=== PATIENT | male | born 1955 | race Caucasian/White ===

== ENCOUNTER 2017-12-16 13:02 | Inpatient (IN) ==
--- NOTE | 2017-12-16 14:34 | Family Practice History&Phys ---
History of Present Illness Chief complaint: shortness of breath HPI: He reports that he has been having more shortness of breath the day than yesterday. Two days ago in the evening time he was having chest pains and went to [place] emergency room. It taken to [facility] and his chest pains have gone away and not returned. At the emergency room acute ischemia was ruled out. He had a chest x-ray and was not found to have pneumonia. He was diagnosed with COPD exacerbation. He was seen in the clinic yesterday and started on prednisone 50 mg daily for three days. Also started on doxycycline 100 mg twice a day. Uses oxygen at home. He normally is on 2 L but currently is taking 3 L by nasal cannula. He has been coughing. His cough is worse. He feels like He cannot get any air in. He denies fevers chills or nausea or vomiting. He denies chest pain. He is sleeping on 2 to 3 pillows. PFSH See problem list Surgical History: cabg - Social History Smoking status: Current every day smoker Medications Home Medications Medication Instructions Recorded Confirmed Type Anoro Ellipta 62.5-25 Mcg INH IH QAM 12/16/17 History Apidra Solostar 6 units SQ TID 12/16/17 History Azithromycin 250 mg PO QDRHS 12/16/17 History Basaglar Kwikpen U-100 16 units SQ DAILY 12/16/17 History Carvedilol 3.125 mg PO BID 12/16/17 History Combivent Respimat Inhaler 20 - 100 mcg IH QID 12/16/17 History Doxycycline 100 mg PO BID 12/16/17 History Finasteride 5 mg PO DAILY 12/16/17 History Flovent Hfa 220 mcg 1 puff IH BID 12/16/17 History Lasix 20 mg PO DAILY 12/16/17 History Lisinopril 20 mg PO DAILY 12/16/17 History Methocarbamol 750 mg PO BID 12/16/17 History Nitrostat 0.4 mg PO PRN 12/16/17 History Pantoprazole Tab 40 mg PO DAILY 12/16/17 History Plavix 75 mg PO DAILY 12/16/17 History Potassium Chloride 20 mcg PO DAILY 12/16/17 History Prednisone 50 mg PO DAILY 12/16/17 History Simvastatin 40 mg PO DAILY 12/16/17 History Xarelto 20 mg PO DAILY 12/16/17 History Allergies Allergy/AdvReac Type Severity Reaction Status Date / Time cabbage Allergy Unknown Verified 12/16/17 13:08 levofloxacin [From Levaquin] Allergy Unknown Verified 12/16/17 13:08 strawberry Allergy Unknown Verified 12/16/17 13:08 varenicline [From Chantix] Allergy Unknown Verified 12/16/17 13:08 Exam Vital signs: Blood pressure 121/80 heart rate 96, respiratory rate 20, temperature 96.4, oxygen saturation on 3 L by nasal cannula is 96% - Constitutional no acute distress - Routine HEENT Exam Head: Present: normocephalic, atraumatic Eye: Present: PERRL ENT: Present: external ear normal Throat: normal inspection - Routine Neck Exam Present: supple - Routine Respiratory Exam Comments: Lung sounds are very diminished in the bases bilaterally. I cannot hear air moving in the bases. In the upper lobes he has some expiratory wheezes. He seems to be of breath at rest. He has a moist cough. - Routine Cardiovascular Exam Present: RRR - Routine Abdominal Exam Present: soft, non distended, non tender Results - Labs All other labs normal. Assessment and Plan - Assessment and Plan (1) Chronic obstructive pulmonary disease with acute exacerbation Current visit: Yes Status: Acute I am ordering IV Solu-Medrol, oxygen to keep that's greater than 91%, IV fluids. Will also do nebulized medication. Observe overnight. Possible hospital admission. (2) Acute bronchitis due to other specified organisms Current visit: Yes Status: Acute Rocephin 1 g IV daily (3) Type 2 diabetes mellitus Current visit: No Status: Acute Check BGM's sent continue insulin (4) Coronary artery disease involving autologous artery coronary bypass graft Current visit: No Status: Acute Continue PRN Nitro and monitor symptoms (5) Hypertensive heart disease Current visit: No Status: Acute Continue oral medication and monitor vital signs (6) Hypercholesterolemia Current visit: No Status: Acute Continue simvastatin (7) Tobacco dependence due to cigarettes Current visit: No Status: Acute I discussed using an nicotine patch that patient refuses
[2017-12-16 14:46] VITALS: BMI 36.9
[2017-12-16] MEDS: ALBUTEROL/IPRATROPIUM 2.5mg-0.5mg/3ml NEB AEROSOL SCH ×3 (15:00→21:08)
[2017-12-16] MEDS ORDERED: ACETAMINOPHEN 500 MG TABLET PO PRN (15:03)
--- OUTSIDE RECORDS SUMMARY | 2017-12-16 15:04 | External Medical Summary ---
:1955 Author Organization eClinicalWorks Care Team Providers Name Role Phone Danielle Coronel Provider Role Unavailable Allergies, Adverse Reactions, Alerts Substance Reaction Event Type Levaquin Info Not Available Drug Allergy Problems Problem Type Condition ICD-9 Code Onset Dates Condition Status Problem COPD (chronic obstructive 496 Active pulmonary disease) Problem Hearing loss 389.9 Active Problem Heart disease 429.9 Active Problem Diabetes mellitus without 250.00 Active mention of complication, type II or unspecified type, not stated as uncontrolled Problem Coronary atherosclerosis of 414.00 Active unspecified type of vessel, [place] or graft Problem Atrial fibrillation and flutter 427.31 Active Problem Obesity 278.00 Active Problem Unspecified essential 401.9 Active hypertension Problem GERD (gastroesophageal reflux 530.81 Active disease) Problem Other and unspecified 272.4 Active hyperlipidemia Assessment Other and unspecified 272.4 Active hyperlipidemia Assessment Unspecified essential 401.9 Active hypertension Assessment Prostate cancer screening V76.44 Active Assessment Coronary atherosclerosis of 414.00 Active unspecified type of vessel, [place] or graft Assessment COPD (chronic obstructive 496 Active pulmonary disease) Assessment Diabetes mellitus without 250.00 Active mention of complication, type II or unspecified type, not stated as uncontrolled Medications Medication Code Code Instructions Start End Status Dosage System Date Date Ipratropium NDC 0 Dec 05, inhale 2 puffs [place] mcg/actuation 2013 (34 mcg) by inhalation route 4 times per day for 15 days Pradaxa ND 87770110767 150 MG Oral not defined NovoLog Flexpen ND 87566985483 100 INJECT 5 UNITS SUBCUTANEOUSLY THREE TIMES A DAY WITH MEALS Simvastatin ND 48173123167 40 TAKE ONE TABLET BY MOUTH EVERY EVENING Home Oxygen NDC 0 supply PNC Oct 12, 2 liters nightly and 2011 prn during the day Xopenex HFA ND 21511589483 45 INHALE 2 PUFFS BY MOUTH EVERY 4 TO 6 HOURS NEEDED Robaxin-750 ND 45898740756 750 TAKE ONE TABLET BY MOUTH TWICE A DAY Avodart ND 84286098039 0.5 TAKE ONE CAPSULE BY MOUTH DAILY Klor-Con M20 ND 53661020656 20 TAKE ONE TABLET BY MOUTH EVERY DAY WITH FOOD . TAKE WITH FUROSEMIDE Furosemide [facility] 99424631064 40 TAKE ONE TABLET BY MOUTH EVERY DAY Iprat-albut ND 0 0.5 mg-02 February INHALE ONE VIAL 0.5-3(2.5) mg/3 mg(2.5 07, IN NEBULIZER 4 ml 2014 TIMES A DAY Methocarbamol [facility] 75223684349 750 MG Oral not defined Levemir [facility] [address]-16 100 unit/mL Oct 14 units by 2012 Subcutaneous route 1 time per day Captopril [facility] [address]-57 25 MG Orally May 02 tablet twice a day 2012 Aspirin ND 0 81 mg May 02 PER DAY 2012 Carvedilol [facility] 97007162028 3.125 MG Oral not defined Procedures Procedure Coding System Code Date Lipid Panel - [facility] CPT-4 96849 May 08, 2015 Comprehen Metabolic Panel.[facility] CPT-4 46861 May 08, 2015 GLYCOSYLATED HEMOGLOBIN TEST CPT-4 17579 May 08, 2015 OFFICE VISIT EST PATIENT LEVEL 3 CPT-4 96696 May 08, 2015 PROS CANCR SCR; PROS ANTIG TST TOT CPT-4 G0103 May 08, 2015 ROUTINE VENIPUNCTURE CPT-4 48057 May 08, 2015 Vital Signs Date/Time: May 08, 2015 BMI 39.06 Index Weight 288 lbs Height 72 in Blood Pressure Diastolic 82 mm Hg Blood Pressure Systolic 118 mm Hg Cardiac Monitoring Heart Rate 86 /min Temperature 98.6 F Oximetry 87 - rest % Respiratory Rate 20 /min Results Name Result Date Reference Range Unit Abnormality Flag Venipuncture Summary Purpose eClinicalWorks Submission
--- OUTSIDE RECORDS SUMMARY | 2017-12-16 15:04 | External Medical Summary | Referral Summary ---
:1955 Author Organization [facility] Address [address] [place] [address] Care Team Providers Name Role Phone Danielle Coronel Primary Care Physician Encounter [facility] Date(s): 06/24/16 - 06/24/16 [facility] [address] [place] [address]- [place] Discharge Diagnosis: Shortness of breath Discharge Disposition: 01-Home or Self Care Attending Physician: Drake Newton MD Admitting Physician: Drake Newton MD Referring Physician: Drake Newton MD Vital Signs No data available for this section Problem List Condition Effective Dates Status Health Status Informant Knowledge deficit(Confirmed)1 Active Obesity(Confirmed) Active patient Tobacco user(Confirmed) Active patient 1Problem added automatically by system based on initiation of Knowledge Deficit Plan of Care Allergies, Adverse Reactions, Alerts Substance Reaction Severity Status levofloxacin Nausea/vomiting Severe Active Medications Anoro Ellipta 62.5 mcg-25 mcg/inh inhalation powder 1 puffs, Inhalation, Daily, Samples X 3 given to patient, instructed on use., # 3 Each, 0 Refill(s),samples given to patient (Rx) Start Date: 06/24/16 Status: OrderedAtrovent HFA 17 mcg/inh inhalation aerosol 34 mcg 2 puffs, Inhalation, q4hr, Wheezing, 0 Refill(s) Start Date: 08/30/15 Status: OrderedAvodart 0.5 mg oral capsule 0.5 mg 1 caps, Oral, Daily, # 30 caps, 0 Refill(s) Start Date: 08/29/15 Status: Orderedazithromycin 250 mg oral tablet See Instructions, Take one tablet 3 times weekly on Thursday, Thursday and Silvano., # 12 tabs, 6 Refill(s), Pharmacy: [facility] #[id number], Take one tablet 3 times weekly on Thursday, Thursday and Thursday. Start Date: 06/24/16 Status: Orderedcaptopril 25 mg oral tablet 25 mg 1 tabs, Oral, BID, # 60 tabs, 0 Refill(s) Start Date: 08/29/15 Status: Orderedcarvedilol 3.125 mg oral tablet 3.125 mg 1 tabs, Oral, BID, # 180 tabs, 0 Refill(s) Start Date: 08/29/15 Status: OrderedDuoNeb 0.5 mg-2.5 mg/3 mL inhalation solution 3 mL, Inhalation, QID, 0 Refill(s) Start Date: 08/29/15 Status: OrderedFlovent HFA 220 mcg/inh inhalation aerosol 220 mcg 1 puffs, Inhalation, BID, 0 Refill(s) Start Date: 08/30/15 Status: Orderedfurosemide 40 mg oral tablet 40 mg 1 tabs, Oral, Daily, # 30 tabs, 0 Refill(s) Start Date: 08/29/15 Status: OrderedLevemir 15 units, SubCutaneous, Bedtime (once a day), 0 Refill(s) Start Date: 08/29/15 Status: Orderedmethocarbamol 750 mg oral tablet 750 mg 1 tabs, Oral, BID, 0 Refill(s) Start Date: 08/29/15 Status: Orderednitroglycerin 0.4 mg sublingual tablet 0.4 mg 1 tabs, SubLingual, q5min, as needed for chest pain, # 100 tabs, 0 Refill (s) Start Date: 08/29/15 Status: OrderedNovoLOG 5 units, SubCutaneous, TIDAC, 0 Refill(s) Start Date: 08/29/15 Status: OrderedPlavix 75 mg oral tablet 75 mg 1 tabs, Oral, Daily, # 30 tabs, 11 Refill(s) Start Date: 08/30/15 Status: Orderedpotassium chloride 20 mEq oral tablet, extended release 20 mEq 1 tabs, Oral, Daily, 0 Refill(s) Start Date: 08/29/15 Status: OrderedPradaxa 150 mg oral capsule 150 mg 1 caps, Oral, BID, # 60 caps, 0 Refill(s) Start Date: 08/29/15 Status: Orderedsimvastatin 40 mg oral tablet 40 mg 1 tabs, Oral, Bedtime (once a day), # 30 tabs, 0 Refill(s) Start Date: 08/29/15 Status: OrderedXopenex 0.63 mg/3 mL inhalation solution 0.63 mg 3 mL, NEB, q4hr, 0 Refill(s) Start Date: 08/29/15 Status: Ordered Results No data available for this section Immunizations No data available for this section Procedures Procedure Date Related Diagnosis Body Site Catheterization Left Heart with Coronary 08/29/15 Angiography1 CABG - Coronary artery bypass graft 05/03/13 Left atrial appendage ligation 05/03/13 Maze operation 05/03/13 SEVERO-guided Cardioversion 02/23/13 Cardiac cath with PTCA to LAD-daig 02/22/13 Pleurodesis 2012 1auto-populated from documented surgical case Social History Social History Type Response Smoking Status Current every day smoker; Type: Cigarettes; Tobacco use per day : More than 1 pack; Number of years: 50 Assessment and Plan No data available for this section
--- OUTSIDE RECORDS SUMMARY | 2017-12-16 15:04 | External Medical Summary ---
[...] of 414.00 Active unspecified type of vessel, [place] or graft Problem Atrial fibrillation and flutter 427.31 Active Problem Obesity 278.00 Active Problem Unspecified essential 401.9 Active hypertension Problem GERD (gastroesophageal reflux 530.81 Active disease) Problem Other and unspecified 272.4 Active hyperlipidemia Assessment Other and unspecified 272.4 Active hyperlipidemia Assessment Unspecified essential 401.9 Active hypertension Assessment Prostate cancer screening V76.44 Active Assessment Coronary atherosclerosis of 414.00 Active unspecified type of vessel, [place] or graft Assessment COPD (chronic obstructive 496 Active pulmonary disease) Assessment Diabetes mellitus without 250.00 Active mention of complication, type II or unspecified type, not stated as uncontrolled Medications Medication Code Code Instructions Start End Status Dosage System Date Date Ipratropium NDC 0 Dec 05, inhale 2 puffs [place] mcg/actuation 2013 (34 mcg) by inhalation route 4 times per day for 15 days Pradaxa ND 94741590145 150 MG Oral not defined NovoLog Flexpen ND 41289556954 100 INJECT 5 UNITS SUBCUTANEOUSLY THREE TIMES A DAY WITH MEALS Simvastatin ND 79251051389 40 TAKE ONE TABLET BY MOUTH EVERY EVENING Home Oxygen NDC 0 supply PNC Oct 12, 2 liters nightly and 2011 prn during the day Xopenex HFA ND 95376807697 45 INHALE 2 PUFFS BY MOUTH EVERY 4 TO 6 HOURS NEEDED Robaxin-750 ND 88112799984 750 TAKE ONE TABLET BY MOUTH TWICE A DAY Avodart ND 62834283320 0.5 TAKE ONE CAPSULE BY MOUTH DAILY Klor-Con M20 ND 84783175551 20 TAKE ONE TABLET BY MOUTH EVERY DAY WITH FOOD . TAKE WITH FUROSEMIDE Furosemide [facility] 95154225504 40 TAKE ONE TABLET BY MOUTH EVERY DAY Iprat-albut ND 0 0.5 mg-02 February INHALE ONE VIAL 0.5-3(2.5) mg/3 mg(2.5 07, IN NEBULIZER 4 ml 2014 TIMES A DAY Methocarbamol [facility] 78612434224 750 MG Oral not defined Levemir [facility] [address]-84 100 unit/mL Oct 14 units by 2012 Subcutaneous route 1 time per day Captopril [facility] [address]-39 25 MG Orally May 02 tablet twice a day 2012 Aspirin ND 0 81 mg May 02 PER DAY 2012 Carvedilol [facility] 51476034354 3.125 MG Oral not defined Procedures Procedure Coding System Code Date MICROALBUMIN, SEMIQUANT CPT-4 01504 May 08, 2015 Lipid Panel - [facility] CPT-4 11376 May 08, 2015 GLYCOSYLATED HEMOGLOBIN TEST CPT-4 97607 May 08, 2015 PROS CANCR SCR; PROS ANTIG TST TOT CPT-4 G0103 May 08, 2015 Comprehen Metabolic Panel.[facility] CPT-4 12796 May 08, 2015 OFFICE VISIT EST PATIENT LEVEL 3 CPT-4 58475 May 08, 2015 Vital Signs Date/Time: May 08, 2015 BMI 39.06 Index Weight 288 lbs Height 72 in Blood Pressure Diastolic 82 mm Hg Blood Pressure Systolic 118 mm Hg Cardiac Monitoring Heart Rate 86 /min Temperature 98.6 F Oximetry 87 - rest % Respiratory Rate 20 /min Results No Known Results Summary Purpose eClinicalWorks Submission
--- OUTSIDE RECORDS SUMMARY | 2017-12-16 15:04 | External Medical Summary | Referral Summary ---
:1955 Author Organization [facility] Address [address] [place] [address] Care Team Providers Name Role Phone Danielle Coronel Primary Care Physician Encounter [facility] [id number] Date(s): 08/29/15 - 08/30/15 [facility] [address] [place] [address] Discharge Diagnosis: HLD (hyperlipidemia) Discharge Diagnosis: Asthma with COPD Discharge Diagnosis: HTN (hypertension) Discharge Diagnosis: CAD (coronary artery disease) Discharge Diagnosis: Ischemic cardiomyopathy Discharge Disposition: 01-Home or Self Care Attending Physician: Luz Bhakta MD Admitting Physician: Luz Bhakta MD Vital Signs Most recent to oldest [Reference Range]: 1 Temperature Temporal Artery [36.3-37.8 degC] 36.0 degC *LOW* (08/30/15 6:00 AM) Peripheral Pulse Rate [60-100 bpm] 79 bpm (08/29/15 8:36 PM) Heart Rate Monitored [60-100 bpm] 59 bpm *LOW* (08/30/15 8:00 AM) Respiratory Rate [14-20 br/min] 12 br/min *LOW* (08/30/15 9:03 AM) Blood Pressure [90-140/60-90 mmHg] 114/62 mmHg (08/30/15 8:00 AM) Mean Arterial Pressure, Cuff 78 mmHg (08/30/15 8:00 AM) Pulse Rate [60-100 bpm] 71 bpm (08/30/15 9:03 AM) SpO2 96 % (08/30/15 2:00 AM) Problem List Condition Effective Dates Status Health Status Informant Knowledge deficit(Confirmed)1 Active Obesity(Confirmed) Active patient Tobacco user(Confirmed) Active patient 1Problem added automatically by system based on initiation of Knowledge Deficit Plan of Care Allergies, Adverse Reactions, Alerts Substance Reaction Severity Status levofloxacin Nausea/vomiting Severe Active Medications Atrovent HFA 17 mcg/inh inhalation aerosol 34 mcg 2 puffs, Inhalation, q4hr, Wheezing, 0 Refill(s) Start Date: 08/30/15 Status: OrderedAvodart 0.5 mg oral capsule 0.5 mg 1 caps, Oral, Daily, # 30 caps, 0 Refill(s) Start Date: 08/29/15 Status: Orderedcaptopril 25 mg oral tablet 25 [...] Refill(s) Start Date: 08/29/15 Status: Ordered Results Hematology Most recent to oldest [Reference Range]: 1 WBC [4.8-10.8 10*3/uL] 8.1 10*3/uL (08/30/15 3:22 AM) RBC [4.60-6.20] 4.66 (08/30/15 3:22 AM) Hgb [14.0-18.0 gm/dL] 14.0 gm/dL (08/30/15 3:22 AM) Hct [42.0-52.0 %] 43.6 % (08/30/15 3:22 AM) MCV [82.0-99.0 fL] 93.6 fL (08/30/15 3:22 AM) MCH [27.0-32.0 pg] 30.0 pg (08/30/15 3:22 AM) MCHC [32.0-36.0 gm/dL] 32.1 gm/dL (08/30/15 3:22 AM) RDW [11.5-14.5 %] 13.9 % (08/30/15 3:22 AM) Platelet [150-400 10*3/uL] 160 10*3/uL (08/30/15 3:22 AM) MPV [9.4-12.3 fL] 9.9 fL (08/30/15 3:22 AM) Chemistry Most recent to oldest [Reference Range]: 1 Sodium Lvl [136-144 mEq/L] 136 mEq/L (08/30/15 3:22 AM) Potassium Lvl [3.6-5.1 mEq/L] 3.9 mEq/L (08/30/15 3:22 AM) Chloride [99-109 mEq/L] 98 mEq/L *LOW* (08/30/15 3:22 AM) CO2 [22-32 mEq/L] 30 mEq/L (08/30/15 3:22 AM) AGAP [3-20] 8 (08/30/15 3:22 AM) BUN [4-20 mg/dL] 7 mg/dL (08/30/15 3:22 AM) Glucose Lvl [70-100 mg/dL] 148 mg/dL *HI* (08/30/15 3:22 AM) Creatinine Lvl [0.64-1.27 mg/dL] 0.85 mg/dL (08/30/15 3:22 AM) eGFR [>60] >60 1 (08/30/15 3:22 AM) Calcium Lvl [8.6-10.0 mg/dL] 9.3 mg/dL (08/30/15 3:22 AM) Blood Glucose, Capillary [70-100 mg/dL] 139 mg/dL *HI* (08/30/15 6:06 AM) 1Result Comment: Multiply eGFR results by 1.21 for race. Immunizations No data available for this section [...]
--- OUTSIDE RECORDS SUMMARY | 2017-12-16 15:04 | External Medical Summary ---
:1955 Author Organization eClinicalWorks Care Team Providers Name Role Phone Danielle Coronel Provider Role Unavailable Allergies, Adverse Reactions, Alerts Substance Reaction Event Type Levaquin Info Not Available Drug Allergy Problems Problem Type Condition Code Onset Dates Condition Status Problem Unspecified essential hypertension 401.9 Active Problem Other and unspecified hyperlipidemia 272.4 Active Problem Obesity 278.00 Active Problem COPD (chronic obstructive pulmonary J44.9 Active disease) Problem Coronary artery disease I25.10 Active Problem CAD (coronary artery disease) I25.10 Active Problem Coronary atherosclerosis of 414.00 Active unspecified type of vessel, [place] or graft Problem GERD (gastroesophageal reflux 530.81 Active disease) Problem Atrial fibrillation and flutter 427.31 Active Problem Diabetes mellitus without mention of 250.00 Active complication, type II or unspecified type, not stated as uncontrolled Assessment CAD (coronary artery disease) I25.10 Active Problem COPD (chronic obstructive pulmonary 496 Active disease) Problem Heart disease 429.9 Active Assessment COPD (chronic obstructive pulmonary J44.9 Active disease) Problem Hearing loss 389.9 Active Medications Medication Code Code Instructions Start End Status Dosage System Date Date Captopril [facility] [address]-69 25 MG Orally May 1 tablet twice a day 2012 Carvedilol [facility] 88832334769 3.125 MG Oral not defined Xopenex HFA [facility] 31422747547 45 INHALE 2 PUFFS BY MOUTH EVERY 4 TO 6 HOURS NEEDED Klor-Con M20 [facility] 44950762389 20 TAKE ONE TABLET BY MOUTH EVERY DAY WITH FOOD . TAKE WITH FUROSEMIDE Flovent HFA ND 0 220 INHALE ONE PUFF BY MOUTH TWICE A DAY Plavix [facility] [address]-28 75 MG Orally 1 tablet Once a day Methocarbamol [facility] 04471347035 750 MG Oral not defined Levemir [facility] [address]-58 100 unit/mL Oct 14, 15 units by 2012 Subcutaneous route 1 time per day NovoLog Flexpen [facility] 05709174498 100 INJECT 5 UNITS SUBCUTANEOUSLY THREE TIMES A DAY WITH MEALS Simvastatin [facility] 77718689646 40 TAKE ONE TABLET BY MOUTH EVERY EVENING Furosemide [facility] 16202521333 40 TAKE ONE TABLET BY MOUTH EVERY DAY Ipratropium NDC 0 Dec 05, inhale 2 puffs [place] mcg/actuation 2013 (34 mcg) by inhalation route 4 times per day for 15 days Iprat-albut NDC 0 0.5 mg-3 January INHALE ONE VIAL 0.5-3(2.5) mg/3 mg(2.5 07, IN NEBULIZER 4 ml 2014 TIMES A DAY Avodart [facility] 71620928214 0.5 TAKE ONE CAPSULE BY MOUTH DAILY Home Oxygen NDC 0 supply PNC Oct 12, 2 liters nightly and 2011 prn during the day Pradaxa [facility] 92703130610 150 MG Oral not defined Nitrostat [facility] [address]-33 0.4 MG 1 tablet Sublingual DuoNeb [facility] 88570001067 0.5 mg-3 INHALE ONE VIAL mg(2.5 IN NEBULIZER 4 TIMES A DAY Procedures Procedure Coding System Code Date OFFICE VISIT EST PATIENT LEVEL 3 CPT-4 57207 Sep 04, 2015 Vital Signs Date/Time: Sep 04, 2015 BMI 37.48 Index Weight 276.4 lbs Height 72 in Blood Pressure Diastolic 72 mm Hg Blood Pressure Systolic 118 mm Hg Cardiac Monitoring Heart Rate 88 /min Temperature 98.2 F Respiratory Rate 18 /min Results No Known Results Summary Purpose eClinicalWorks Submission
--- OUTSIDE RECORDS SUMMARY | 2017-12-16 15:04 | External Medical Summary ---
:1955 Author Organization eClinicalWorks Care Team Providers Name Role Phone Danielle Coronel Provider Role Unavailable Allergies No Known Allergies Problems Problem Type Condition Code Onset Dates Condition Status Problem Obesity 278.00 Active Problem Hearing loss 389.9 Active Problem HLD (hyperlipidemia) E78.5 Active Problem GERD (gastroesophageal reflux K21.9 Active disease) Problem HTN (hypertension) I10 Active Problem COPD (chronic obstructive pulmonary J44.9 Active disease) Problem IDDM (insulin dependent diabetes E11.9 Active mellitus) Problem Afib I48.91 Active Problem CAD (coronary artery disease) I25.10 Active Medications Medication Code System Code Instructions Start End Date [place] [address] 40 MG Orally once 1 tablet 5-10 [place] [address] 750 MG Oral twice May 06, 1 tablet 2-01 a day 2016 [place] [address]-321 3.125 MG Oral 1 tablet 1-01 Twice [place] [address] 25 MG Orally May 17, 1 tablet 3-01 twice a day 2012 [place] [address] 40 MG Orally once 1 tablet 9-25 a day Results No Known Results Summary Purpose eClinicalWorks Submission
--- OUTSIDE RECORDS SUMMARY | 2017-12-16 15:04 | External Medical Summary ---
:1955 Author Organization eClinicalWorks Care Team Providers Name Role Phone Danielle Coronel Provider Role Unavailable Allergies, Adverse Reactions, Alerts Substance Reaction Event Type Levaquin Info Not Available Drug Allergy Chantix Info Not Available Drug Allergy Problems Problem Type Condition Code Onset Dates Condition Status Assessment COPD (chronic obstructive pulmonary J44.9 Active disease) Problem Obesity 278.00 Active Problem Hearing loss 389.9 Active Assessment Anxiety F41.9 Active Problem HLD (hyperlipidemia) E78.5 Active Problem GERD (gastroesophageal reflux K21.9 Active disease) Problem HTN (hypertension) I10 Active Problem COPD (chronic obstructive pulmonary J44.9 Active disease) Problem IDDM (insulin dependent diabetes E11.9 Active mellitus) Problem Afib I48.91 Active Problem CAD (coronary artery disease) I25.10 Active Medications Medication Code Code Instructions Start End Status Dosage System Date Date Iprat-albut NDC 0 0.5 mg-3 January INHALE ONE VIAL 0.5-3(2.5) mg/3 mg(2.5 07, IN NEBULIZER 4 ml 2014 TIMES A DAY Anoro Ellipta [facility] [address]-00 62.5-25 1 puff MCG/INH Inhalation Once a day Levemir [facility] [address]-27 100 UNIT/ML INJECT 17 UNITS FlexTouch UNDER THE SKIN ONCE A DAY Azithromycin [facility] [address]-17 250 MG Orally 1 tablet thu, thu, thu Furosemide [facility] [address]-47 40 MG Orally 1 tablet once a day Klor-Con M20 [facility] 67120662779 20 TAKE ONE TABLET BY MOUTH DAILY WITH FOOD . TAKE WITH FUROSEMIDE Xopenex HFA [facility] [address]-60 45 MCG/ACT INHALE 2 PUFFS Inhalation BY MOUTH EVERY every 4 hrs 4 TO 6 [place] [address]-04 40 MG Orally 1 tablet once a day NovoLog Flexpen [facility] [address]-50 100 INJECT 7 UNITS SUBCUTANEOUSLY 2-3 TIMES A DAY WITH MEALS Captopril [facility] [address]-63 25 MG Orally May 1 tablet twice a day 2012 Methocarbamol [facility] [address]-13 750 MG Oral May 1 tablet twice a day 2016 Plavix [facility] [address]-23 75 MG Orally 1 tablet Once a day Carvedilol [facility] [address]-47 3.125 MG Oral 1 tablet with Twice a day food Atrovent HFA [facility] 39058233268 17 Inhalation INHALE TWO Four times a PUFFS FOUR day TIMES A DAY Flovent HFA [facility] 00829261610 220 INHALE ONE PUFF BY MOUTH TWICE A DAY Nitrostat [facility] [address]-95 0.4 MG 1 tablet Sublingual Alprazolam [facility] [address]-06 0.25 MG Orally Jul 1 tablet as twice a day , needed for 2015 anxiety/nerves Avodart [facility] 48794708390 0.5 TAKE ONE CAPSULE BY MOUTH DAILY Home Oxygen ND 0 [facility] Oct 12, 2 liters nightly and 2011 prn during the day Pradaxa [facility] [address]-50 150 MG Oral not defined Twice a day Procedures Procedure Coding System Code Date OFFICE VISIT EST PATIENT LEVEL 3 CPT-4 85705 Jul 08, 2016 Vital Signs Date/Time: Jul 08, 2016 BMI 36.07 Index Weight 266.0 lbs Height 72 in Blood Pressure Diastolic 86 mm Hg Blood Pressure Systolic 126 mm Hg Cardiac Monitoring Heart Rate 84 /min Temperature 97.9 F Respiratory Rate 20 /min Results No Known Results Summary Purpose eClinicalWorks Submission
--- OUTSIDE RECORDS SUMMARY | 2017-12-16 15:04 | External Medical Summary ---
[...] Instructions Start End Date Status Dosage Date [facility] M[facility] [place] [address]-25 20 MEQ Orally TAKE ONE 58-01 TABLET BY MOUTH DAILY WITH FOOD . TAKE WITH FUROSEMIDE Results No Known Results Summary Purpose eClinicalWorks Submission
--- OUTSIDE RECORDS SUMMARY | 2017-12-16 15:04 | External Medical Summary ---
:1955 Author Organization eClinicalWorks Care Team Providers Name Role Phone Danielle Coronel Provider Role Unavailable Allergies No Known Allergies Problems Problem Type Condition Code Onset Dates Condition Status Problem Heart disease 429.9 Active Problem Unspecified essential hypertension 401.9 Active Problem Hearing loss 389.9 Active Problem COPD (chronic obstructive pulmonary 496 Active disease) Problem Atrial fibrillation and flutter 427.31 Active Problem Diabetes mellitus without mention of 250.00 Active complication, type II or unspecified type, not stated as uncontrolled Problem Coronary artery disease I25.10 Active Problem Other and unspecified hyperlipidemia 272.4 Active Problem Obesity 278.00 Active Problem Coronary atherosclerosis of 414.00 Active unspecified type of vessel, [place] or graft Problem GERD (gastroesophageal reflux 530.81 Active disease) Medications No Known Medications Results No Known Results Summary Purpose eClinicalWorks Submission
--- OUTSIDE RECORDS SUMMARY | 2017-12-16 15:04 | External Medical Summary ---
[...] 389.9 Active Problem Heart disease 429.9 Active Assessment Skin lesion 709.9 Active Problem Diabetes mellitus without 250.00 Active mention of complication, type II or unspecified type, not stated as uncontrolled Problem Coronary atherosclerosis of 414.00 Active unspecified type of vessel, [place] or graft Problem Atrial fibrillation and flutter 427.31 Active Problem Obesity 278.00 Active Problem Unspecified essential 401.9 Active hypertension Problem GERD (gastroesophageal reflux 530.81 Active disease) Problem Other and unspecified 272.4 Active hyperlipidemia Medications Medication Code Code Instructions Start End Status Dosage System Date Date Methocarbamol [facility] 24364154521 750 MG Oral not defined Captopril [facility] [address]-94 25 MG Orally May 02 tablet twice a day 2012 Iprat-albut ND 0 0.5 mg-3 January INHALE ONE VIAL 0.5-3(2.5) mg/3 mg(2.5 07, IN NEBULIZER 4 ml 2014 TIMES A DAY Nitrostat [facility] [address]-65 0.4 MG 1 tablet Sublingual Ipratropium ND 0 Dec 05, inhale 2 puffs [place] mcg/actuation 2013 (34 mcg) by inhalation route 4 times per day for 15 days Aspirin NDC 0 81 mg May 02 PER DAY 2012 Levemir [facility] [address]-79 100 unit/mL Oct 14, 15 units by 2012 Subcutaneous route 1 time per day NovoLog Flexpen [facility] 28559448743 100 INJECT 5 UNITS SUBCUTANEOUSLY THREE TIMES A DAY WITH MEALS Avodart ND 80778639039 0.5 TAKE ONE CAPSULE BY MOUTH DAILY Robaxin-750 [facility] 30192293917 750 TAKE ONE TABLET BY MOUTH TWICE A DAY Xopenex HFA [facility] 33284616339 45 INHALE 2 PUFFS BY MOUTH EVERY 4 TO 6 HOURS NEEDED Pradaxa [facility] 34327958526 150 MG Oral not defined Klor-Con M20 [facility] 55976560530 20 TAKE ONE TABLET BY MOUTH EVERY DAY WITH FOOD . TAKE WITH FUROSEMIDE Home Oxygen ND 0 [facility] Oct 12, 2 liters nightly and 2011 prn during the day Furosemide [facility] 95879156134 40 TAKE ONE TABLET BY MOUTH EVERY DAY Carvedilol [facility] 20470734925 3.125 MG Oral not defined Simvastatin [facility] 80683973318 40 TAKE ONE TABLET BY MOUTH EVERY EVENING Procedures Procedure Coding System Code Date DESTRUCT BENIGN LESION OTHER THAN SKIN TAGS OR CPT-4 49675 May 17, 2015 CUTANEOUS VASCULAR PROLIFERATIVE LESIONS (CRYO; CHEMOSURG; CURETTEMENT), 1-14 BIOPSY, SKIN LESION CPT-4 71838 May 17, 2015 Vital Signs Date/Time: May 17, 2015 BMI 39.06 Index Weight 288 lbs Height 72 in Blood Pressure Diastolic 80 mm Hg Blood Pressure Systolic 126 mm Hg Cardiac Monitoring Heart Rate 80 /min Temperature 97.5 F Respiratory Rate 20 /min Results No Known Results Summary Purpose eClinicalWorks Submission
--- OUTSIDE RECORDS SUMMARY | 2017-12-16 15:04 | External Medical Summary ---
[...] Medications Medication Code Code Instructions Start End Date Status Dosage System Date [facility] [id number] 17 Inhalation INHALE TWO Four times a day PUFFS FOUR TIMES A DAY Results No Known Results Summary Purpose [employer] Submission
[2017-12-16] MEDS ORDERED: SIMVASTATIN 40 MG TABLET PO ONE (15:05)
--- OUTSIDE RECORDS SUMMARY | 2017-12-16 15:05 | External Medical Summary ---
:1955 Author Organization [facility] Address [address] [place] [address] Care Team Providers Name Role Phone Danielle Coronel Unavailable Unavailable PROBLEMS Type Condition ICD9-CM Code IEI04-AL Onset Condition SNOMED Code Code Dates Status Problem Hearing loss 389.9 Active 41072641 Problem IDDM (insulin E11.9 Active 085974047 dependent diabetes mellitus) Problem Obesity 278.00 Active 797569493 Assessment CAD (coronary I25.10 Jan, Active 06710590 artery disease) 2017 Problem HTN I10 Active 15204004 (hypertension) Problem HLD E78.5 Active 60163389 (hyperlipidemia) Problem CAD (coronary I25.10 Active 63394405 artery disease) Problem COPD (chronic J44.9 Active 40970006 obstructive pulmonary disease) Problem GERD K21.9 Active 256501011 (gastroesophagea l reflux disease) Problem Afib I48.91 Active 23430254 ALLERGIES Substance Reaction Event Type Date Status Levaquin nausea /vomiting Drug Allergy Jan, Active Chantix heart rate elevated Drug Allergy Jan, Active SOCIAL HISTORY No smoking Hx information available PLAN OF CARE VITAL SIGNS Height 72 in 2017-02-17 Weight 267.0 lbs 2017-02-17 BMI 36.21 kg/m2 2017-02-17 Temperature 98.6 degrees Fahrenheit 2017-02-17 Heart Rate 80 /min 2017-02-17 Respiratory Rate 20 /min 2017-02-17 Blood pressure systolic 130 mm Hg 2017-02-17 Blood pressure diastolic 88 mm Hg 2017-02-17 MEDICATIONS Medication Instructions Dosage Frequency Start End Duration Status Date Date Nitrostat 0.4 1 tablet Active MG Atrovent HFA 17 Inhalation INHALE TWO PUFFS 6h 25 Active Four times a FOUR TIMES A day DAY Carvedilol Oral Twice a 1 tablet with 12h 90 days Active 3.125 MG day food Azithromycin Orally mon, 1 tablet Active 250 MG wed, thu Home Oxygen [facility] nightly 2 liters Oct, lifetime Active supply and prn during 2011 the day Levemir Subcutaneous INJECT 17 UNITS 24h Active FlexTouch 100 once a day UNDER THE SKIN UNIT/ML ONCE A DAY Furosemide 40 Orally once a 1 tablet 24h 90 days Active MG day Anoro Ellipta Inhalation 1 puff 24h Active 62.5-25 MCG/INH Once a day Simvastatin 40 Orally once a 1 tablet 24h 90 days Active MG day Alprazolam 0.25 Orally twice a 1 tablet as 12h Jul, 30 days Active MG day needed for 2015 anxiety/nerves Klor-Con M20 20 TAKE ONE TABLET 30 Active MEQ BY MOUTH DAILY WITH FOOD . TAKE WITH FUROSEMIDE Plavix 75 MG Orally Once a 1 tablet 24h Active day Captopril 25 MG Orally twice a 1 tablet 12h 16 May, days Active day 2012 Xopenex HFA 45 Inhalation INHALE 2 PUFFS 4h 30 days Active MCG/ACT every 4 hrs BY MOUTH EVERY 4 TO 6 HOURS NEEDED Pantoprazole Orally Once a 1 tablet 24h Dec, day(s) Active Sodium 40 mg day 2016 Pradaxa 150 MG Oral Twice a 12h Active day NovoLog Flexpen INJECT 7 UNITS Active 100 SUBCUTANEOUSLY 2-3 TIMES A DAY WITH MEALS Methocarbamol Oral twice a 1 tablet 12h 5 May, days Active 750 MG day 2016 Flovent HFA 220 Inhalation INHALE ONE PUFF 12h 30 Active Twice a day BY MOUTH TWICE A DAY Ipratropium-Alb Inhalation 3 ml 6h 29 Jul, days Active uterol 0.5-2.5 Four times a 2016 (3) MG/3ML day Avodart 0.5 MG Orally Once a 1 capsule 24h 24 90 days Active day Jul, 2017 RESULTS No Results PROCEDURES Procedure Date Ordered Related Diagnosis Body Site OFFICE VISIT EST PATIENT LEVEL 3 February 17, 2017 IMMUNIZATIONS No Known Immunizations
--- OUTSIDE RECORDS SUMMARY | 2017-12-16 15:05 | External Medical Summary ---
:1955 Author Organization eClinicalWorks Care Team Providers Name Role Phone Danielle Coronel Provider Role Unavailable Allergies No Known Allergies Problems Problem Type Condition ICD-9 Code Onset [...] Other and unspecified 272.4 Active hyperlipidemia Medications No Known Medications Results No Known Results Summary Purpose eClinicalWorks Submission
--- OUTSIDE RECORDS SUMMARY | 2017-12-16 15:05 | External Medical Summary ---
[...] Start End Date Status Dosage System Date Levemir NDC 39186-92 100 UNIT/ML INJECT 15 FlexTouch 38-10 Subcutaneous UNITS UNDER once a day THE SKIN ONCE A DAY OneTouch Ultra NDC 0 strip In Vitro Sep 22, as directed Test three times a 2015 day Results No Known Results Summary Purpose [employer] Submission
--- OUTSIDE RECORDS SUMMARY | 2017-12-16 15:05 | External Medical Summary ---
:1955 Author Organization eClinicalWorks Care Team Providers Name Role Phone Danielle Coronel Provider Role Unavailable Allergies, Adverse Reactions, Alerts Substance Reaction Event Type Levaquin Info Not Available Drug Allergy Problems Problem Type Condition Code Onset Dates Condition Status Problem Obesity 278.00 Active Problem GERD (gastroesophageal reflux 530.81 Active disease) Problem Other and unspecified hyperlipidemia 272.4 Active Problem COPD (chronic obstructive pulmonary J44.9 Active disease) Problem IDDM (insulin dependent diabetes E11.9 Active mellitus) Problem CAD (coronary artery disease) I25.10 Active Problem Diabetes mellitus without mention of 250.00 Active complication, type II or unspecified type, not stated as uncontrolled Problem Coronary atherosclerosis of 414.00 Active unspecified type of vessel, [place] or graft Problem Coronary artery disease I25.10 Active Problem Atrial fibrillation and flutter 427.31 Active Assessment HTN (hypertension) I10 Active Assessment IDDM (insulin dependent diabetes E11.9 Active mellitus) Problem COPD (chronic obstructive pulmonary 496 Active disease) Problem Heart disease 429.9 Active Assessment COPD (chronic obstructive pulmonary J44.9 Active disease) Problem Hearing loss 389.9 Active Assessment Acute bronchitis J20.9 Active Problem Unspecified essential hypertension 401.9 Active Medications Medication Code Code Instructions Start End Status Dosage System Date Date Home Oxygen NDC 0 supply [facility] Oct 12, 2 liters nightly and 2011 prn during the day Flovent HFA NDC 0 220 INHALE ONE PUFF BY MOUTH TWICE A DAY Xopenex HFA ND 19430036203 45 INHALE 2 PUFFS BY MOUTH EVERY 4 TO 6 HOURS NEEDED Klor-Con M20 [facility] 61292221285 20 TAKE ONE TABLET BY MOUTH DAILY WITH FOOD . TAKE WITH FUROSEMIDE Carvedilol [facility] 06755740637 3.125 MG Oral not defined Levemir ND 94134756948 100 unit/mL INJECT 15 UNITS FlexTouch UND[place] [address]-29 100 mg Orally Nov 12Nov 02 tablet Monohydrate twice a day 2015 Pradaxa [facility] 60379944238 150 MG Oral not defined Avodart [facility] 03554189992 0.5 TAKE ONE CAPSULE BY MOUTH DAILY Furosemide [facility] 44764392848 40 TAKE ONE TABLET BY MOUTH EVERY DAY Captopril [facility] [address]-31 25 MG Orally May 1 tablet twice a day 2012 Methocarbamol [facility] 53054651591 750 MG Oral not defined NovoLog Flexpen [facility] 90568128192 100 INJECT 5 UNITS SUBCUTANEOUSLY THREE TIMES A DAY WITH MEALS Iprat-albut ND 0 0.5 mg-3 January INHALE ONE VIAL 0.5-3(2.5) mg/3 mg(2.5 07, IN NEBULIZER 4 ml 2014 TIMES A DAY Plavix [facility] [address]-78 75 MG Orally 1 tablet Once a day Simvastatin [facility] 82618486110 40 TAKE ONE TABLET BY MOUTH EVERY EVENING Atrovent HFA [facility] 83427683465 17 INHALE TWO PUFFS FOUR TIMES A DAY Ipratropium [facility] 0 17 Dec 05, inhale 2 puffs [place] mcg/actuation 2013 (34 mcg) by inhalation route 4 times per day for 15 days Nitrostat [facility] [address]-58 0.4 MG 1 tablet Sublingual Procedures Procedure Coding System Code Date GLYCOSYLATED HEMOGLOBIN TEST CPT-4 36674 Nov 12, 2015 COMPLETE CBC, AUTOMATED.[facility] CPT-4 26483 Nov 12, 2015 OFFICE VISIT EST PATIENT LEVEL 3 CPT-4 61435 Nov 12, 2015 Lipid Panel - [facility] CPT-4 71645 Nov 12, 2015 Comprehen Metabolic Panel.[facility] CPT-4 18502 Nov 12, 2015 ROUTINE VENIPUNCTURE CPT-4 50734 Nov 12, 2015 Vital Signs Date/Time: Nov 12, 2015 BMI 37.94 Index Weight 279.8 lbs Height 72 in Blood Pressure Diastolic 70 mm Hg Blood Pressure Systolic 128 mm Hg Cardiac Monitoring Heart Rate 76 /min Temperature 97.7 F Respiratory Rate 18 /min Results No Known Results Summary Purpose eClinicalWorks Submission
--- OUTSIDE RECORDS SUMMARY | 2017-12-16 15:05 | External Medical Summary ---
:1955 Author Organization eClinicalWorks Care Team Providers Name Role Phone Danielle Coronel Provider Role Unavailable Allergies, Adverse Reactions, Alerts Substance Reaction Event Type Levaquin Info Not Available Drug Allergy Problems Problem Type Condition Code Onset Dates Condition Status Problem Heart disease 429.9 Active Problem Unspecified essential hypertension 401.9 Active Problem Hearing loss 389.9 Active Problem Atrial fibrillation and flutter 427.31 Active Problem Diabetes mellitus without mention 250.00 Active of complication, type II or unspecified type, not stated as uncontrolled Problem Coronary artery disease I25.10 Active Problem Other and unspecified 272.4 Active hyperlipidemia Problem Obesity 278.00 Active Problem Coronary atherosclerosis of 414.00 Active unspecified type of vessel, [place] or graft Problem GERD (gastroesophageal reflux 530.81 Active disease) Assessment Leg pain, bilateral M79.604 Active Assessment Coronary artery disease I25.10 Active Assessment Chest pain R07.9 Active Assessment Needs flu shot Z23 Active Problem COPD (chronic obstructive pulmonary 496 Active disease) Medications Medication Code Code Instructions Start End Status Dosage System Date Date Klor-Con M20 [facility] 44648753684 20 TAKE ONE TABLET BY MOUTH EVERY DAY WITH FOOD . TAKE WITH FUROSEMIDE Carvedilol [facility] 29195027425 3.125 MG Oral not defined Pradaxa ND 05343248650 150 MG Oral not defined NovoLog Flexpen [facility] 05384993632 100 INJECT 5 UNITS SUBCUTANEOUSLY THREE TIMES A DAY WITH MEALS Iprat-albut ND 0 0.5 mg-3 January INHALE ONE VIAL 0.5-3(2.5) mg/3 mg(2.5 07, IN NEBULIZER 4 ml 2014 TIMES A DAY Methocarbamol ND 56721668470 750 MG Oral not defined Xopenex HFA [facility] 73409401071 45 INHALE 2 PUFFS BY MOUTH EVERY 4 TO 6 HOURS NEEDED Flovent HFA ND 0 220 INHALE ONE PUFF BY MOUTH TWICE A DAY Simvastatin [facility] 81893607810 40 TAKE ONE TABLET BY MOUTH EVERY EVENING Avodart ND 22054766263 0.5 TAKE ONE CAPSULE BY MOUTH DAILY Captopril [facility] [address]-34 25 MG Orally May 02 tablet twice a day 2012 Aspirin ND 0 81 mg May 02 PER DAY 2012 Levemir [facility] [address]-77 100 unit/mL Oct 14, 15 units by 2012 Subcutaneous route 1 time per day Ipratropium ND 0 17 Dec 05, inhale 2 puffs [place] mcg/actuation 2013 (34 mcg) by inhalation route 4 times per day for 15 days Furosemide [facility] 59453273078 40 TAKE ONE TABLET BY MOUTH EVERY DAY Nitrostat [facility] [address]-87 0.4 MG 1 tablet Sublingual Home Oxygen ND 0 supply [facility] Oct 12, 2 liters nightly and 2011 prn during the day Procedures Procedure Coding System Code Date *edyta Donnelly, 3+ yrs, 0.5mL CPT-4 35079 Aug 08, 2015 IMMUNIZATION ADMIN CPT-4 57643 Aug 08, 2015 OFFICE VISIT EST PATIENT LEVEL 4 CPT-4 01962 Aug 08, 2015 Vital Signs Date/Time: Aug 08, 2015 BMI 38.11 Index Weight 281 lbs Height 72 in Blood Pressure Diastolic 86 mm Hg Blood Pressure Systolic 122 mm Hg Cardiac Monitoring Heart Rate 88 /min Temperature 97.5 F Respiratory Rate 18 /min Results Name Result Date Reference Range Unit Abnormality Flag OTHER-IMMUNIZATION ADMIN Immunizations Vaccine Administration Date *edyta Donnelly, 3+ yrs, 0.5mL Aug 08, 2015 Summary Purpose eClinicalWorks Submission
--- OUTSIDE RECORDS SUMMARY | 2017-12-16 15:05 | External Medical Summary ---
[...] of 414.00 Active unspecified type of vessel, [place] or graft Problem Atrial fibrillation and flutter 427.31 Active Problem Obesity 278.00 Active Problem Unspecified essential 401.9 Active hypertension Problem GERD (gastroesophageal reflux 530.81 Active disease) Problem Other and unspecified 272.4 Active hyperlipidemia Assessment Other and unspecified 272.4 Active hyperlipidemia Assessment Unspecified essential 401.9 Active hypertension Assessment Prostate cancer screening V76.44 Active Assessment Coronary atherosclerosis of 414.00 Active unspecified type of vessel, [place] or graft Assessment COPD (chronic obstructive 496 Active pulmonary disease) Assessment Diabetes mellitus without 250.00 Active mention of complication, type II or unspecified type, not stated as uncontrolled Medications Medication Code Code Instructions Start End Status Dosage System Date Date Ipratropium NDC 0 Dec 05, inhale 2 puffs [place] mcg/actuation 2013 (34 mcg) by inhalation route 4 times per day for 15 days Pradaxa ND 04091868000 150 MG Oral not defined NovoLog Flexpen ND 32063150967 100 INJECT 5 UNITS SUBCUTANEOUSLY THREE TIMES A DAY WITH MEALS Simvastatin ND 51047033853 40 TAKE ONE TABLET BY MOUTH EVERY EVENING Home Oxygen NDC 0 supply [facility] Oct 12, 2 liters nightly and 2011 prn during the day Xopenex HFA ND 75682255026 45 INHALE 2 PUFFS BY MOUTH EVERY 4 TO 6 HOURS NEEDED Robaxin-750 ND 07221628826 750 TAKE ONE TABLET BY MOUTH TWICE A DAY Avodart ND 88331392323 0.5 TAKE ONE CAPSULE BY MOUTH DAILY Klor-Con M20 ND 57340059313 20 TAKE ONE TABLET BY MOUTH EVERY DAY WITH FOOD . TAKE WITH FUROSEMIDE Furosemide [facility] 49598473352 40 TAKE ONE TABLET BY MOUTH EVERY DAY Iprat-albut ND 0 0.5 mg-02 February INHALE ONE VIAL 0.5-3(2.5) mg/3 mg(2.5 07, IN NEBULIZER 4 ml 2014 TIMES A DAY Methocarbamol [facility] 90106707450 750 MG Oral not defined Levemir [facility] [address]-40 100 unit/mL Oct 14 units by 2012 Subcutaneous route 1 time per day Captopril [facility] [address]-68 25 MG Orally May 02 tablet twice a day 2012 Aspirin ND 0 81 mg May 02 PER DAY 2012 Carvedilol [facility] 64545915783 3.125 MG Oral not defined Procedures Procedure Coding System Code Date MICROALBUMIN, SEMIQUANT CPT-4 36105 May 08, 2015 Lipid Panel - [facility] CPT-4 83618 May 08, 2015 GLYCOSYLATED HEMOGLOBIN TEST CPT-4 96468 May 08, 2015 PROS CANCR SCR; PROS ANTIG TST TOT CPT-4 G0103 May 08, 2015 Comprehen Metabolic Panel.[facility] CPT-4 70152 May 08, 2015 OFFICE VISIT EST PATIENT LEVEL 3 CPT-4 36853 May 08, 2015 Vital Signs Date/Time: May 08, 2015 BMI 39.06 Index Weight 288 lbs Height 72 in Blood Pressure Diastolic 82 mm Hg Blood Pressure Systolic 118 mm Hg Cardiac Monitoring Heart Rate 86 /min Temperature 98.6 F Respiratory Rate 20 /min Results No Known Results Summary Purpose eClinicalWorks Submission
--- OUTSIDE RECORDS SUMMARY | 2017-12-16 15:05 | External Medical Summary ---
:1955 Author Organization [facility] Address [address] [place], [place] [address] Care Team Providers Name Role Phone Danielle Coronel Unavailable Unavailable PROBLEMS Type Condition ICD9-CM Code BWA57-PD Code Onset Condition SNOMED Code Dates Status Problem Hearing loss 389.9 Active 31199163 Problem IDDM (insulin E11.9 Active 026790512 dependent diabetes mellitus) Problem Obesity 278.00 Active 954648076 Problem HTN I10 Active 26915048 (hypertension) Problem HLD E78.5 Active 89864991 (hyperlipidemia) Problem CAD (coronary I25.10 Active 84807193 artery disease) Problem COPD (chronic J44.9 Active 86514911 obstructive pulmonary disease) Problem GERD K21.9 Active 722876048 (gastroesophagea l reflux disease) Problem Afib I48.91 Active 76748316 ALLERGIES Unknown Allergies SOCIAL HISTORY No smoking Hx information available PLAN OF CARE VITAL SIGNS MEDICATIONS Unknown Medications RESULTS No Results PROCEDURES No Known procedures IMMUNIZATIONS No Known Immunizations
--- OUTSIDE RECORDS SUMMARY | 2017-12-16 15:05 | External Medical Summary | Referral Summary ---
:1955 Author Organization [facility] Address [address] [place] [address] Care Team Providers Name Role Phone Danielle Coronel Primary Care Physician Encounter VC Date(s): 12/24/16 - 12/24/16 [facility] [address] [place] [address]- [place] Discharge Diagnosis: Chronic bronchitis Discharge Diagnosis: COPD with emphysema Discharge Diagnosis: Tobacco abuse Discharge Diagnosis: Hypoxemia Discharge Diagnosis: Obesity Discharge Disposition: 01-Home or Self Care Attending Physician: Drake Newton MD Admitting Physician: Drake Newton MD Vital Signs Most recent to oldest [Reference Range]: 1 Peripheral Pulse Rate [60-100 bpm] 81 bpm (12/24/16 10:13 AM) Respiratory Rate [14-20 br/min] 20 br/min (12/24/16 10:13 AM) Blood Pressure [90-140/60-90 mmHg] 112/74 mmHg (12/24/16 10:13 AM) SpO2 91 % (12/24/16 10:13 AM) Problem List Condition Effective Dates Status Health Status Informant Knowledge deficit(Confirmed)1 Active Obesity(Confirmed) Active patient Tobacco user(Confirmed) Active patient 1Problem added automatically by system based on initiation of Knowledge Deficit Plan of Care Allergies, Adverse Reactions, Alerts Substance Reaction Severity Status levofloxacin Nausea/vomiting Severe Active Medications Anoro Ellipta 62.5 mcg-25 mcg/inh inhalation powder See Instructions, INHALE ONE DOSE BY MOUTH DAILY, # 60 unknown unit, 1 Refill(s) , eRx: [facility] #[id number] Start Date: 11/10/16 Status: OrderedAtrovent HFA 17 mcg/inh inhalation aerosol 34 mcg 2 puffs, Inhalation, q4hr, Wheezing, 0 Refill(s) Start Date: 08/30/15 Status: OrderedAvodart 0.5 mg oral capsule 0.5 mg 1 caps, Oral, Daily, # 30 caps, 0 Refill(s) Start Date: 08/29/15 Status: Orderedazithromycin 250 mg oral tablet 250 mg 1 tabs, Oral, Daily, # 30 tabs, 6 Refill(s), Pharmacy: [facility] # [id number], 1 tabs Oral Daily Start Date: 12/24/16 Status: Orderedcaptopril 25 mg oral tablet 25 [...] TIDAC, 0 Refill(s) Start Date: 08/29/15 Status: Orderedpantoprazole 40 mg intravenous injection 40 mg, IV, Daily, # 1 Each, 0 Refill(s) Start Date: 12/24/16 Status: OrderedPlavix 75 mg oral tablet 75 mg 1 tabs, Oral, Daily, # 30 tabs, 11 Refill(s) Start Date: 08/30/15 Status: Orderedpotassium chloride 20 mEq oral tablet, extended release 20 mEq 1 tabs, Oral, Daily, 0 Refill(s) Start Date: 08/29/15 Status: OrderedPradaxa 150 mg oral capsule 150 mg 1 caps, Oral, BID, # 60 caps, 0 Refill(s) Start Date: 08/29/15 Status: OrderedpredniSONE 10 mg oral tablet See Instructions, Take 2 tablets daily for 14 days, then take 1 tablet daily for 14 days., # 42 tabs, 0 Refill(s), Pharmacy: [facility] #[id number], Take 2 tablets daily for 14 days, then take 1 tablet daily for 14 days. Start Date: 12/24/16 Status: Orderedsimvastatin 40 mg oral tablet 40 [...] Number of years: 49 Assessment and Plan Extracted from: Title: Ambulatory Patient Education Author: Drake Newton MD Date: 12/24/16 No follow up information was provided. Extracted from: Title: Office Visit Note Author: Drake Newton MD Date: 12/24/16 Assessment/Plan 1.COPD with emphysema I've recommended the patient continue his current inhalers. He is to remain on Anoro and Floventdaily. He also has a DuoNebthat he uses 2-4 times daily. He is unable uses DuoNebuse AtroventandXopenex. 2.Chronic bronchitis I've increased his vzidfzcryehswq746 mg daily. 3.Tobacco abuse I spoke with him about the importance of smoking cessationonceagain. 4.Hypoxemia 5.Obesity Return visit is planned in 6 months or sooner if need be.
--- OUTSIDE RECORDS SUMMARY | 2017-12-16 15:05 | External Medical Summary ---
[...] of 414.00 Active unspecified type of vessel, [place] or graft Problem Coronary artery disease I25.10 Active Problem Atrial fibrillation and flutter 427.31 Active Problem COPD (chronic obstructive pulmonary 496 Active disease) Problem Heart disease 429.9 Active Problem Hearing loss 389.9 Active Problem Unspecified essential hypertension 401.9 Active Medications No Known Medications Results No Known Results Summary Purpose eClinicalWorks Submission
--- OUTSIDE RECORDS SUMMARY | 2017-12-16 15:05 | External Medical Summary ---
:1955 Author Organization eClinicalWorks Care Team Providers Name Role Phone Danielle Coronel Provider Role Unavailable Allergies No Known Allergies Problems Problem Type Condition ICD-9 Code Onset Dates Condition Status Problem Heart disease 429.9 Active Problem COPD (chronic obstructive 496 Active pulmonary disease) Problem Coronary atherosclerosis of 414.00 Active unspecified type of vessel, [place] or graft Problem GERD (gastroesophageal reflux 530.81 Active disease) Problem Diabetes mellitus without 250.00 Active mention of complication, type II or unspecified type, not stated as uncontrolled Problem Unspecified essential 401.9 Active hypertension Problem Hearing loss 389.9 Active Problem Other and unspecified 272.4 Active hyperlipidemia Problem Obesity 278.00 Active Medications Medication Code System Code Instructions Start Date End Date Status [facility] [id number] 0.5 mg-3 mg(2.5 Active 1 vial orally four times per day Dx: 496 Results No Known Results Summary Purpose eClinicalWorks Submission
--- OUTSIDE RECORDS SUMMARY | 2017-12-16 15:05 | External Medical Summary ---
[...] of 414.00 Active unspecified type of vessel, [place] or graft Problem GERD (gastroesophageal reflux 530.81 Active disease) Medications Medication Code Code Instructions Start End Date Status Dosage System Date Immanuel Cifuentes [facility] [id number] 33 DX: E11.9 TEST THREE Lancets 33G TIMES A DAY Results No Known Results Summary Purpose eClinicalWorks Submission
--- OUTSIDE RECORDS SUMMARY | 2017-12-16 15:05 | External Medical Summary ---
[...] of 414.00 Active unspecified type of vessel, [place] or graft Problem GERD (gastroesophageal reflux 530.81 Active disease) Problem Atrial fibrillation and flutter 427.31 Active Problem Diabetes mellitus without mention of 250.00 Active complication, type II or unspecified type, not stated as uncontrolled Assessment Acute bronchitis J20.9 Active Problem COPD (chronic obstructive pulmonary 496 Active disease) Problem Heart disease 429.9 Active Problem Hearing loss 389.9 Active Medications Medication Code Code Instructions Start End Status Dosage System Date Date Levemir [facility][NOTE 3] [address]-44 100 unit/mL Oct 14 15 units by 2012 Subcutaneous route 1 time per day Flovent HFA NDC 0 220 INHALE ONE PUFF BY MOUTH TWICE A DAY Pradaxa [facility][NOTE 3] 90225062552 150 MG Oral not defined Simvastatin [facility][NOTE 3] 96319218200 40 TAKE ONE TABLET BY MOUTH EVERY EVENING Carvedilol [facility][NOTE 3] 98147694165 3.125 MG Oral not defined Home Oxygen NDC 0 supply PNC Oct 12, 2 liters nightly and 2011 prn during the day DuoNeb [facility][NOTE 3] 73266939931 0.5 mg-3 INHALE ONE VIAL mg(2.5 IN NEBULIZER 4 TIMES A DAY Doxycycline [facility][NOTE 3] [address]-80 100 mg Orally Oct 02Oct 1 tablet Monohydrate twice a day 2014 Xopenex HFA [facility][NOTE 3] 39605916358 45 INHALE 2 PUFFS BY MOUTH EVERY 4 TO 6 HOURS NEEDED Plavix [facility][NOTE 3] [address]-96 75 MG Orally 1 tablet Once a day Furosemide [facility][NOTE 3] 16742498715 40 TAKE ONE TABLET BY MOUTH EVERY DAY Klor-Con M20 [facility][NOTE 3] 12908717145 20 TAKE ONE TABLET BY MOUTH EVERY DAY WITH FOOD . TAKE WITH FUROSEMIDE Iprat-albut ND 0 0.5 mg-02 February INHALE ONE VIAL 0.5-3(2.5) mg/3 mg(2.5 07, IN NEBULIZER 4 ml 2014 TIMES A DAY NovoLog Flexpen [facility][NOTE 3] 91406579247 100 INJECT 5 UNITS SUBCUTANEOUSLY THREE TIMES A DAY WITH MEALS Nitrostat [facility][NOTE 3] [address]-28 0.4 MG 1 tablet Sublingual Avodart [facility][NOTE 3] 62947814405 0.5 TAKE ONE CAPSULE BY MOUTH DAILY Ipratropium [facility][NOTE 3] 0 Dec 05, inhale 2 puffs [place] mcg/actuation 2013 (34 mcg) by inhalation route 4 times per day for 15 days Captopril [facility][NOTE 3] [address]-08 25 MG Orally May 1 tablet twice a day 2012 Methocarbamol [facility][NOTE 3] 68226094753 750 MG Oral not defined Procedures Procedure Coding System Code Date OFFICE VISIT EST PATIENT LEVEL 3 CPT-4 80556 Oct 02, 2015 Vital Signs Date/Time: Oct 02, 2015 BMI 37.50 Index Weight 276.5 lbs Height 72 in Blood Pressure Diastolic 86 mm Hg Blood Pressure Systolic 126 mm Hg Cardiac Monitoring Heart Rate 84 /min Temperature 98.5 F Respiratory Rate 18 /min Results No Known Results Summary Purpose eClinicalWorks Submission
--- OUTSIDE RECORDS SUMMARY | 2017-12-16 15:05 | External Medical Summary ---
:1955 Author Name GENERATED, SYSTEM Care Team Providers Name Role Phone MD KENDY, JOSE ALBERTO Primary Care Provider [phone] Reason For Visit Chief Complaint M79.604 Social History Functional Status Vital Signs Results Problems Encounter Diagnosis No relevant problems exist. Additional Problems Dyspnea Comment:Problem resolved by [facility] Workflow upon Discharge, Status: Resolved. Encounters Encounter Diagnosis No relevant problems exist. Plan of Care Procedures Completed , on 07/06/2013 12:00 AM Immunizations No immunizations administered or ordered. Hospital Course Hospital Discharge Instructions Allergies, Adverse Reactions, Alerts Lipitor causes elevated liver enzymes.Latex Allergy has not been assessed.IV Contrast Allergy has not been assessed. Medication Medication reconciliation has not been performed.
--- OUTSIDE RECORDS SUMMARY | 2017-12-16 15:05 | External Medical Summary ---
[...] of 414.00 Active unspecified type of vessel, [place] or graft Problem Atrial fibrillation and flutter 427.31 Active Problem Obesity 278.00 Active Problem Unspecified essential 401.9 Active hypertension Problem GERD (gastroesophageal reflux 530.81 Active disease) Problem Other and unspecified 272.4 Active hyperlipidemia Medications No Known Medications Results No Known Results Summary Purpose eClinicalWorks Submission
--- OUTSIDE RECORDS SUMMARY | 2017-12-16 15:05 | External Medical Summary ---
:1955 Author Organization [facility] Address [address] [place], [place] [address] Care Team Providers Name Role Phone Danielle Coronel Unavailable Unavailable PROBLEMS Type Condition ICD9-CM Code RCE89-PD Code Onset Condition SNOMED Code Dates Status Problem Hearing loss 389.9 Active 41918469 Problem IDDM (insulin E11.9 Active 504379240 dependent diabetes mellitus) Problem Obesity 278.00 Active 109194744 Problem HTN I10 Active 65682998 (hypertension) Problem HLD E78.5 Active 83222564 (hyperlipidemia) Problem CAD (coronary I25.10 Active 92756584 artery disease) Problem COPD (chronic J44.9 Active 10782023 obstructive pulmonary disease) Problem GERD K21.9 Active 752330946 (gastroesophagea l reflux disease) Problem Afib I48.91 Active 37626160 ALLERGIES Unknown Allergies SOCIAL HISTORY No smoking Hx information available PLAN OF CARE VITAL SIGNS MEDICATIONS Medication Instructions Dosage Frequency Start Date End Date Duration Status BD Ultra-Fine Pen 1needle Nov, 30 days Active Flushing [id number] RESULTS No Results PROCEDURES No Known procedures IMMUNIZATIONS No Known Immunizations
--- OUTSIDE RECORDS SUMMARY | 2017-12-16 15:05 | External Medical Summary ---
[...] of 414.00 Active unspecified type of vessel, [place] or graft Problem Coronary artery disease I25.10 Active Problem Atrial fibrillation and flutter 427.31 Active Assessment UTI (urinary tract infection) N39.0 Active Assessment Cough R05 Active Problem COPD (chronic obstructive pulmonary 496 Active disease) Problem Heart disease 429.9 Active Assessment Left flank pain R10.9 Active Problem Hearing loss 389.9 Active Assessment Painful urination R30.9 Active Problem Unspecified essential hypertension 401.9 Active Medications Medication Code Code Instructions Start End Status Dosage System Date Date Home Oxygen NDC 0 supply PNC Oct 12, 2 liters nightly and 2011 prn during the day Iprat-albut NDC 0 0.5 mg-3 January INHALE ONE VIAL 0.5-3(2.5) mg/3 mg(2.5 07, IN NEBULIZER 4 ml 2014 TIMES A DAY Ipratropium NDC 0 17 Dec 05, inhale 2 puffs [place] mcg/actuation 2013 (34 mcg) by inhalation route 4 times per day for 15 days Xopenex HFA ND [id number] 45 INHALE 2 PUFFS BY MOUTH EVERY 4 TO 6 [place] [address]-65 500 MG Orally Dec 04, Dec 1 tablet Twice a day 2015 Furosemide ND 72890334081 40 TAKE ONE TABLET BY MOUTH DAILY Carvedilol [facility] 33109060167 3.125 MG Oral not defined Flovent HFA ND 0 220 INHALE ONE PUFF BY MOUTH TWICE A DAY Avodart [facility] 41075852289 0.5 TAKE ONE CAPSULE BY MOUTH DAILY Pradaxa [facility] 45496529982 150 MG Oral not defined Ceftin [facility] [address]-65 500 MG Orally Dec 04Dec 1 tablet Twice a day 2015 Klor-Con M20 [facility] 49059082014 20 TAKE ONE TABLET BY MOUTH DAILY WITH FOOD . TAKE WITH FUROSEMIDE Methocarbamol [facility] 44465699223 750 MG Oral not defined Plavix [facility] [address]-06 75 MG Orally 1 tablet Once a day NovoLog Flexpen [facility] 03715970933 100 INJECT 5 UNITS SUBCUTANEOUSLY THREE TIMES A DAY WITH MEALS Levemir [facility] 08799630318 100 unit/mL INJECT 15 UNITS FlexTouch UNDER THE SKIN ONCE A DAY Captopril [facility] [address]-32 25 MG Orally May 1 tablet twice a day 2012 Simvastatin [facility] 77433219690 40 TAKE ONE TABLET BY MOUTH EVERY EVENING Medrol (Shon) [facility] [address]-90 4 MG Orally Dec 04Dec as directed once a day 2015 Atrovent HFA [facility] 90368684292 17 INHALE TWO PUFFS FOUR TIMES A DAY Nitrostat [facility] [address]-03 0.4 MG 1 tablet Sublingual Procedures Procedure Coding System Code Date URINE CULTURE/COLONY COUNT.AMS CPT-4 61375 Dec 04, 2015 OFFICE VISIT EST PATIENT LEVEL 3 CPT-4 86624 Dec 04, 2015 URINALYSIS NONAUTO WO SCOPE CPT-4 70730 Dec 04, 2015 THERPROPHDIAG INJ, SCIM CPT-4 59263 Dec 04, 2015 Ceftriaxone (Rocephin) 1000mg CPT-4 J0696 Dec 04, 2015 METHYLPREDNISOLONE 80 MG INJ CPT-4 J1040 Dec 04, 2015 Vital Signs Date/Time: Dec 04, 2015 BMI 37.32 Index Weight 275.2 lbs Height 72 in Blood Pressure Diastolic 80 mm Hg Blood Pressure Systolic 122 mm Hg Cardiac Monitoring Heart Rate 80 /min Temperature 98.8 F Oximetry 89% % Respiratory Rate 18 /min Results No Known Results Summary Purpose eClinicalWorks Submission
--- OUTSIDE RECORDS SUMMARY | 2017-12-16 15:05 | External Medical Summary ---
:1955 Author Name GENERATED, SYSTEM Care Team Providers Name Role Phone MD KENDY, JOSE ALBERTO Primary Care Provider [phone] Reason For Visit Chief Complaint SOB Social History Functional Status Vital Signs Results Blood Gas from 12/14/2017 10:00 PM*VENOUS PH7.366 (7.320-7.430 ) VENOUS FXI735.2 MM HG H (38.0-50.0 MM HG) *VENOUS BB7549 MM HG H (38-42 MM HG) *VENOUS VCD494.4 mmol/L (23.0-30.0 mmol/L) ELLEN. UQTFYULJOEU06.9 MEQ/L H (22.0-29.0 MEQ/L) *ELLEN. BASE EXCESS5.0 H (-3.0-3.0 ) ELLEN. O2 CCSPMKBVZC36.1 % H (70.0-80.0 %)Chemistry from 12/15/2017 12:50 AMTROPONIN-I<0.017 NG/ML (0.000-0.056 NG/ML)Chemistry from 12/14/2017 10:00 BNLQHUKN920 MMOL/L L (136-145 MMOL/L) POTASSIUM4.4 MMOL/L (3.5-5.1 MMOL/L) FDTHVLPB71 MMOL/L L (98-107 MMOL/L) HUT251.2 MMOL/L H (21.0-32.0 MMOL/L) *ANION GAP3.8 MMOL/L L (8.0-16.0 MMOL/L) BUN13 MG/DL (7-18 MG/DL) CREATININE1.10 MG/DL (0.70-1.30 MG/DL) *BUN/CREATININE RATIO11.8 (9.1-17.0 ) DRSLYIJ885 MG/DL H (65-99 MG/DL) *GFR EST NON AFR TQQVSTNM76 ML/MIN (Reference Range: not available) *GFR EST AFR AMER82 ML/MIN (Reference Range: not available) CALCIUM8.8 MG/DL (8.5-10.1 MG/DL) BILIRUBIN TOTAL0.30 MG/DL (0.20-1.00 MG/DL) TOTAL PROTEIN7.1 GM/DL (6.4-8.2 GM/DL) ALBUMIN3.7 GM/DL (3.4-5.0 GM/DL) *GLOBULIN3.4 GM/DL (2.3-3.5 GM/DL) *A/G RATIO1.1 L (1.5-2.2 ) ALK OSJZ610 U/L (46-116 U/L) ALT (SGPT)21 U/L (14-59 U/L) AST (SGOT)27 U/L (15-37 U/L) LEIVZC014 U/L (73-393 U/L) TROPONIN-I<0.017 NG/ML (0.000-0.056 NG/ML) B-TYPE NATRIURETIC NITWBPC51 PG/ML (1-100 PG/ML)Hematology from 12/14/2017 10:00 PMWBC6.9 X10e3/UL (3.6-11.2 X10e3/UL) RBC5.33 X10e6/UL (4.06-5.63 X10e6/UL) EWANTUQTEE10.2 G/DL (12.5-16.3 G/DL) REHVQGVEZY68.0 % H (36.7-47.1 %) *MCV91.9 FL (80.0-100.0 FL) *MCH30.3 PG (27.0-33.0 PG) *MCHC33.0 G/DL (32.0-36.0 G/DL) *RDW14.1 % (12.3-17.0 %) *RDWSD45.5 (37.1-47.8 ) OZZGUPSP007 X10e3/UL L (159-386 X10e3/UL) *MPV7.6 FL (7.4-10.4 FL) AUTOMATED DIFFPERFORMED (Reference Range: not available) SEGS69.3 % (Reference Range: not available) *MNKKJYHJEOX17.4 % (Reference Range: not available) *RPWDEMAZZ80.3 % (Reference Range: not available) *EOSINOPHILS0.4 % (Reference Range: not available) *BASOPHILS0.6 % (Reference Range: not available) *ABSOLUTE NEUTROPHILS4.80 X10e3/UL (1.80-7.80 X10e3/UL) *ABSOLUTE LYMPHOCYTES0.80 X10e3/UL L (1.00-3.00 X10e3/UL) *ABSOLUTE MONOCYTES1.30 X10e3/UL H (0.30-1.00 X10e3/UL) *ABSOLUTE EOSINOPHILS0.00 X10e3/UL (0.00-0.50 X10e3/UL) *ABSOLUTE BASOPHILS0.00 X10e3/UL (0.00-0.20 X10e3/UL)Coagulation from 12/14/2017 10:00 PM*PROTHROMBIN TIME13.7 SECONDS H (9.4-11.5 SECONDS) *INR1.29 H (0.90-1.10 )DX Radiology from 12/14/2017 10:09 PMCHEST 1 VIEWHistory: Shortness breath x4 days. Priors: 06/11/2016 Findings: There is moderate COPD. Heart size within normal limits. There postsurgical changes of a CABG. There faint bibasilar infiltrates, right greater than left suspicious for pneumonia. No pneumothorax or pleural effusions identified. Impression: Faint bibasilar infiltrates suspicious for pneumonia. Progress films are recommended Electronically signed by: Pauly Veliz Dictated: 12/15/2017 08:51 (Reference Range: not available) Problems Encounter Diagnosis No relevant problems exist. Additional Problems Acute Exacerbation of Chronic Obstructive Airways Disease Comment:Problem resolved by [facility] Workflow upon Discharge, Status:Resolved.Chronic Atrial Fibrillation Comment:Problem resolved by [facility] Workflow upon Discharge, Status :Resolved.Chronic Congestive Heart Failure Comment:Problem resolved by [facility] Workflow upon Discharge, Status:Resolved.Diabetes Mellitus, Type 2 Comment: Problem resolved by [facility] Workflow upon Discharge, Status:Resolved.Dyspnea Comment:Problem resolved by [facility] Workflow upon Discharge, Status: Resolved.Fall Risk Comment:Problem resolved by [facility] Workflow upon Discharge, Status:Resolved.History of Coronary Artery Bypass Grafting Comment:Problem resolved by [facility] Workflow upon Discharge, Status:Resolved.History of Hypertension Comment:Problem resolved by [facility] Workflow upon Discharge, Status :Resolved.Mobility Impairment Comment:Problem resolved by [facility] Workflow upon Discharge, Status:Resolved.Pneumonia Comment:Problem resolved by [facility] Workflow upon Discharge, Status:Resolved. Encounters Encounter Diagnosis No relevant problems exist. Plan of Care Procedures Completed , on 07/06/2013 12:00 AM Immunizations No immunizations administered or ordered. Hospital Course Hospital Discharge Instructions Allergies, Adverse Reactions, Alerts This section is ict sales representative of the current allergy information, at the time of the CCD generation. In the case of regeneration of the CCD, the allergy information may not reflect the state of known allergies at the time of the CCD' s subject visit. Levaquin causes Severe Nausea and vomiting.Chantix causes Severe Unknown.Lipitor causes elevated liver enzymes.Latex Allergy has not been assessed.IV Contrast Allergy has not been assessed.No Known Food Allergies. Medication Medication reconciliation has not been performed.
--- OUTSIDE RECORDS SUMMARY | 2017-12-16 15:05 | External Medical Summary | Referral Summary ---
:1955 Author Organization [facility] Address [address] [place] [address] Care Team Providers Name Role Phone Danielle Coronel Primary Care Physician Encounter [facility] [id number] Date(s): 08/29/15 - 08/30/[address] [address] [phone] Discharge Diagnosis: HLD (hyperlipidemia) Discharge Diagnosis: Asthma with COPD Discharge Diagnosis: HTN (hypertension) Discharge Diagnosis: CAD (coronary artery disease) Discharge Diagnosis: Ischemic cardiomyopathy Final: Atherosclerotic heart disease of [place] coronary artery without angina pectoris Final: Old myocardial infarction Final: Chest pain, unspecified Final: Ischemic cardiomyopathy Final: Unspecified combined systolic (congestive) and diastolic (congestive) heart failure Final: Paroxysmal atrial fibrillation Final: Essential (primary) hypertension Final: Hyperlipidemia, unspecified Final: Chronic obstructive pulmonary disease, unspecified Final: Unspecified asthma, uncomplicated Final: Type 2 diabetes mellitus without complications Final: Gastro-esophageal reflux disease without esophagitis Final: Nicotine dependence, cigarettes, uncomplicated Final: Presence of aortocoronary bypass graft Final: Coronary angioplasty status 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
[2017-12-16] MEDS ORDERED: NITROGLYCERIN 0.4 MG SUBLINGUAL TABLET SL PRN (15:06)
--- OUTSIDE RECORDS SUMMARY | 2017-12-16 15:06 | External Medical Summary ---
:1955 Author Organization [employer] Care Team Providers Name Role Phone Friend, Vijaya Provider Role Unavailable Allergies, Adverse Reactions, Alerts Substance Reaction Event Type Levaquin Info Not Available Drug Allergy Chantix Info Not Available Drug Allergy Problems Problem Type Condition Code Onset Dates Condition Status Assessment Hospital discharge follow-up Z09 Active Problem Obesity 278.00 Active Problem Hearing loss 389.9 Active Assessment COPD (chronic obstructive pulmonary J44.9 Active disease) Problem HLD (hyperlipidemia) E78.5 Active Problem GERD (gastroesophageal reflux K21.9 Active disease) Problem HTN (hypertension) I10 Active Problem COPD (chronic obstructive pulmonary J44.9 Active disease) Problem IDDM (insulin dependent diabetes E11.9 Active mellitus) Problem Afib I48.91 Active Problem CAD (coronary artery disease) I25.10 Active Medications Medication Code Code Instructions Start End Status Dosage System Date Date Levemir [facility] [address]-97 100 UNIT/ML INJECT 17 UNITS FlexTouch UNDER THE SKIN ONCE A DAY Avodart [facility] [id number] 0.5 TAKE ONE CAPSULE BY MOUTH DAILY Simvastatin [facility] [address]-53 40 MG Orally 1 tablet once a day Klor-Con M20 [facility] [id number] 20 TAKE ONE TABLET BY MOUTH DAILY WITH FOOD . TAKE WITH FUROSEMIDE Flovent HFA [facility] [id number] 220 INHALE ONE PUFF BY MOUTH TWICE A DAY PredniSONE [facility] [address]-51 10 MG Orally 4 tablets for 3 Once a day days, 3 tabs for 3 days, 2 tabs for 3 days, 1 tab for 1 day Home Oxygen [place] 0 supply PNC Oct 12, 2 liters nightly and 2011 prn during the day Furosemide [facility] [address]-65 40 MG Orally 1 tablet once a day Methocarbamol [facility] [address]-80 750 MG Oral May 1 tablet twice a day 2016 Carvedilol [facility] [address]-53 3.125 MG Oral 1 tablet with Twice a day food Nitrostat [facility] [address]-63 0.4 MG 1 tablet Sublingual Xopenex HFA [facility] [address]-03 45 MCG/ACT INHALE 2 PUFFS Inhalation BY MOUTH EVERY every 4 hrs 4 TO 6 HOURS NEEDED Iprat-albut [facility] 0 0.5 mg-02 February INHALE ONE VIAL 0.5-3(2.5) mg/3 mg(2.5 07, IN NEBULIZER 4 ml 2014 TIMES A DAY Plavix [facility] [address]-35 75 MG Orally 1 tablet Once a day Captopril [facility] [address]-53 25 MG Orally May 1 tablet twice a day 2012 NovoLog Flexpen [facility] [address]-94 100 INJECT 7 UNITS SUBCUTANEOUSLY 2-3 TIMES A DAY WITH MEALS Atrovent HFA [facility] 11676343614 17 INHALE TWO PUFFS FOUR TIMES A DAY Pradaxa [facility] [address]-35 150 MG Oral not defined Twice a day Procedures Procedure Coding System Code Date OFFICE VISIT EST PATIENT LEVEL 3 CPT-4 83702 Jun 13, 2016 Vital Signs Date/Time: Jun 13, 2016 BMI 36.80 Index Weight 271.4 lbs Height 72 in Blood Pressure Diastolic 70 mm Hg Blood Pressure Systolic 110 mm Hg Cardiac Monitoring Heart Rate 82 /min Temperature 97.9 F Oximetry 92%RA % Respiratory Rate 22 /min Results No Known Results Summary Purpose eClinicalWorks Submission
--- OUTSIDE RECORDS SUMMARY | 2017-12-16 15:06 | External Medical Summary ---
:1955 Author Organization [employer] Direct Care Team Providers Name Role Phone Danielle [...] Instructions Start Date End Date Status Dosage Avodart [facility] 94847-878 0.5 MG Orally Jul 26 capsule 2-04 Once a day 2016 Results No Known Results Summary Purpose [facility] Direct Submission
--- OUTSIDE RECORDS SUMMARY | 2017-12-16 15:06 | External Medical Summary ---
:1955 Author Name GENERATED, SYSTEM Care Team Providers Name Role Phone MD KENDY, JOSE ALBERTO Primary Care Provider [phone] Reason For Visit Reason for Visit from 06/08/2016 8:45 PM:Pt Stated Reason for Adm : Pneumonia Chief Complaint PNEUMONIA Social History Social History from 06/11/2016 12:33 PM:Tobacco Use? : Current Everyday SmokerSocial History from 06/08/2016 8:45 PM:Tobacco Use? : Current Everyday Smoker Functional Status Functional Status from 06/11/2016 8:35 AM:LOC : AlertOriented To : Person,Place, Time,EventWeight Bearing Status : FullAssist Level : Partial# Assists : 1Functional Status from 06/10/2016 7:37 PM:LOC : AlertOriented To : Person,Place, Time,EventWeight Bearing Status : FullAssist Level : Independent# Assists : IndependentFunctional Status from 06/10/2016 10:32 AM:LOC : AlertOriented To : Person,Place,Time,EventWeight Bearing Status : FullAssist Level : Independent# Assists : IndependentFunctional Status from 06/09/2016 4:00 PM:LOC : AlertOriented To : Person,Place,Time,EventWeight Bearing Status : FullAssist Level : Partial# Assists : 1Functional Status from 06/09/2016 9:00 AM:LOC : AlertOriented To : Person,Place,TimeWeight Bearing Status : FullAssist Level : Partial# Assists : 1Functional Status from 06/08/2016 8:45 PM:LOC : AlertOriented To : Person,Place,Time,EventWeight Bearing Status : FullAssist Level : Partial# Assists : 1 Vital Signs Hospital Vital Signs from 06/11/2016 10:58 AM:Height : 6/0 ft,inTemperature : 96.6 FPulse : 82Respirations : 18BP : 133/91Hospital Vital Signs from 06/11/2016 6:37 AM:Height : 6/0 ft,inTemperature : 97.0 FPulse : 75Respirations : 16BP : 134/65Hospital Vital Signs from 06/11/2016 2:36 AM:Height : 6/0 ft,inTemperature : 97.6 FPulse : 75Respirations : 18BP : 125/59Hospital Vital Signs from 2015 9:49 PM:Height : 6/0 ft,inTemperature : 97.6 FPulse : 81Respirations : 18BP : 164/72Hospital Vital Signs from 06/10/2016 7:15 PM:Height : 6/0 ft, inTemperature : 97.1 FPulse : 78Respirations : 20BP : 128/69Hospital Vital Signs from 06/10/2016 3:00 PM:Height : 6/0 ft,inTemperature : 97.4 FPulse : 82Respirations : 18BP : 132/83Hospital Vital Signs from 06/10/2016 12:04 PM: Height : 6/0 ft,inTemperature : 96.7 FPulse : 69Respirations : 20BP : 114/ 67Hospital Vital Signs from 06/10/2016 10:32 AM:Heart Rate : 85Hospital Vital Signs from 06/10/2016 7:00 AM:Height : 6/0 ft,inTemperature : 96.7 FPulse : 82Respirations : 20BP : 120/75Hospital Vital Signs from 06/09/2016 10:44 PM: Height : 6/0 ft,inTemperature : 97.8 FPulse : 86Respirations : 18BP : 118/ 72Hospital Vital Signs from 06/09/2016 6:44 PM:Height : 6/0 ft,inTemperature : 97.4 FPulse : 88Respirations : 18BP : 113/64Hospital Vital Signs from 06/09/2016 3 :26 PM:Height : 6/0 ft,inTemperature : 99.1 FPulse : 83Respirations : 18BP : 113 /61Hospital Vital Signs from 06/09/2016 11:35 AM:Height : 6/0 ft,inTemperature : 99.1 FPulse : 88Respirations : 20BP : 129/70Hospital Vital Signs from 06/09/2016 10:13 AM:Height : 6/0 ft,inHospital Vital Signs from 06/09/2016 7:30 AM:Height : 6 /0 ft,inTemperature : 97.1 FPulse : 89Respirations : 20BP : 126/59Hospital Vital Signs from 06/08/2016 9:51 PM:Height : 6/0 ft,inTemperature : 98.4 FPulse : 83Respirations : 20BP : 119/72Hospital Vital Signs from 06/08/2016 8:45 PM:Weight : 121.5/ kgHeight : 6/0 ft,inHospital Vital Signs from 06/08/2016 8:10 PM:Weight : 121.5/ kgHeight : 6/0 ft,inTemperature : 98.7 FPulse : 99Respirations : 20BP : 116/69 Results Chemistry from 06/11/2016 6:28 [id number] MMOL/L L (136-145 MMOL/L) POTASSIUM4.2 MMOL/L (3.5-5.1 MMOL/L) TTMCBUAI28 MMOL/L L (98-107 MMOL/L) SYC806.7 MMOL/L (21.0-32.0 MMOL/L) *ANION GAP3.3 MMOL/L L (8.0-16.0 MMOL/L) BUN14 MG/DL (7-18 MG/DL) CREATININE1.00 MG/DL (0.70-1.30 MG/DL) *BUN/CREATININE RATIO14.0 (9.1-17.0 ) LFYIIPF358 MG/DL H (65-99 MG/DL) *GFR EST NON AFR IRIZRXJN37 ML/MIN *GFR EST AFR AMER>90 ML/MIN CALCIUM8.7 MG/DL (8.5-10.1 MG/DL)Chemistry from 06/10/2016 6:01 [id number] MMOL/ L L (136-145 MMOL/L) POTASSIUM4.1 MMOL/L (3.5-5.1 MMOL/L) DOEOJAUX75 MMOL/L L (98-107 MMOL/L) ZZE342.5 MMOL/L (21.0-32.0 MMOL/L) *ANION GAP7.5 MMOL/L L (8.0-16.0 MMOL/L) BUN16 MG/DL (7-18 MG/DL) CREATININE1.25 MG/DL (0.70-1.30 MG/DL) *BUN/CREATININE RATIO12.8 (9.1-17.0 ) JZWLUFB224 MG/DL H (65-99 MG/DL) *GFR EST NON AFR VIXHKKUC96 ML/MIN *GFR EST AFR AMER71 ML/MIN CALCIUM9.0 MG/DL (8.5-10.1 MG/DL) MAGNESIUM2.1 MG/DL (1.8-2.4 MG/DL)Chemistry from 06/09/2016 5:37 SYLWCISK269 MMOL/ L (136-145 MMOL/L) POTASSIUM3.6 MMOL/L (3.5-5.1 MMOL/L) AMRGJIJP77 MMOL/L L (98-107 MMOL/L) CBR782.8 MMOL/L H (21.0-32.0 MMOL/L) *ANION GAP5.2 MMOL/L L (8.0-16.0 MMOL/L) BUN8 MG/DL (7-18 MG/DL) CREATININE0.97 MG/DL (0.70-1.30 MG/DL) *BUN/CREATININE RATIO8.2 L (9.1-17.0 ) OIMNJOP810 MG/DL H (65-99 MG/DL) *GFR EST NON AFR QBPPLEUI14 ML/MIN *GFR EST AFR AMER>90 ML/MIN CALCIUM8.5 MG/DL (8.5-10.1 MG/DL) BILIRUBIN TOTAL0.40 MG/DL (0.20-1.00 MG/DL) TOTAL PROTEIN6.2 GM/DL L (6.4-8.2 GM/DL) ALBUMIN2.9 GM/DL L (3.4-5.0 GM/DL) *GLOBULIN3.3 GM/DL (2.3-3.5 GM/DL) *A/G RATIO0.9 MG/DL L (1.5-2.2 MG/DL) ALK PHOS79 U/L (46-116 U/L) ALT (SGPT)11 U/L L (14-59 U/L) AST (SGOT)8 U/L L (15-37 U/L)Hematology from 06/11/2016 6:28 AMWBC13.4 X10e3/UL H (3.6-11.2 X10e3/UL) RBC3.98 X10e6/UL L (4.06-5.63 X10e6/UL) CCUJJDIRKV49.9 G/DL L (12.5-16.3 G/DL) JZWXVZBYTI76.3 % (36.7-47.1 %) *MCV93.7 FL (80.0-100.0 FL) *MCH30.0 PG (27.0-33.0 PG) *MCHC32.0 G/DL (32.0-36.0 G/DL) *RDW14.5 % (12.3-17.0 %) *RDWSD48.1 H (37.1-47.8 ) BRJTKSBC058 X10e3/UL (159-386 X10e3/UL) *MPV7.9 FL (7.4-10.4 FL) AUTOMATED DIFFPERFORMED SEGS88.4 % *LYMPHOCYTES6.7 % *MONOCYTES4.8 % *EOSINOPHILS0.0 % *BASOPHILS0.1 % *ABSOLUTE FTKTSDIBQAP14.90 X10e3/UL H (1.80-7.80 X10e3/UL) *ABSOLUTE LYMPHOCYTES0.90 X10e3/UL L (1.00-3.00 X10e3/UL) *ABSOLUTE MONOCYTES0.60 X10e3/UL (0.30-1.00 X10e3/UL) *ABSOLUTE EOSINOPHILS0.00 X10e3/UL (0.00-0.50 X10e3/UL) *ABSOLUTE BASOPHILS0.00 X10e3/UL (0.00-0.20 X10e3/UL)Hematology from 06/09/2016 5: 37 AMWBC14.4 X10e3/UL H (3.6-11.2 X10e3/UL) RBC4.42 X10e6/UL (4.06-5.63 X10e6/UL) BODAESUROH65.3 G/DL (12.5-16.3 G/DL) QMBPKOPTNX38.7 % (36.7-47.1 %) *MCV92.2 FL (80.0-100.0 FL) *MCH30.1 PG (27.0-33.0 PG) *MCHC32.6 G/DL (32.0-36.0 G/DL) *RDW14.5 % (12.3-17.0 %) *RDWSD47.3 (37.1-47.8 ) FGEYNGBW748 X10e3/UL L (159-386 X10e3/UL) *MPV8.0 FL (7.4-10.4 FL) *MANUAL DIFFPERFORMED SEGS65.0 % *BANDS13.0 % *LYMPHOCYTES7.0 % *LUFWVNWZC71.0 % *EOSINOPHILS1.0 % *BASOPHILS0.0 % *ABSOLUTE CILPXRTTOYV68.23 X10e3/UL H (1.80-7.80 X10e3/UL) *ABSOLUTE LYMPHOCYTES1.01 X10e3/UL (1.00-3.00 X10e3/UL) *ABSOLUTE MONOCYTES2.02 X10e3/UL H (0.30-1.00 X10e3/UL) *ABSOLUTE EOSINOPHILS0.14 X10e3/UL (0.00-0.50 X10e3/UL) *ABSOLUTE BASOPHILS0.00 X10e3/UL (0.00-0.20 X10e3/UL)DX Radiology from 2015 4:36 AMCHEST 1 VIEWHistory: COPD w/Exac Priors: 06/10/16 Findings: There postop mediastinal changes. The cardiac silhouette is enlarged. The pulmonary vasculature is within normal limits. Minimal right basilar pneumonia is unchanged. Is been slight improvement in scattered left lung pneumonia. There is a small left pleural effusion. Impression: Cardiomegaly is stable right lower lobe pneumonia. Small left pleural effusion and slight improvement in scattered left lung pneumonia. Electronically signed by: Gary Parish MD Dictated: 06/11/2016 07:16DX Radiology from 06/10/2016 4:36 AMCHEST 1 VIEWHistory: COPD w/Exac Priors: Chest x-ray dated 06/08/2016 Findings: Since the prior study there has been interval progression in diffuse left lung infiltrates, suggestive of pneumonia. There has been interval improvement in right basilar infiltrates. Postsurgical changes of median sternotomy are noted. The heart size and pulmonary vasculature are within normal limits. No pneumothorax is seen. There is unchanged COPD. Impression: COPD with worsening diffuse left lung infiltrates, suggestive of pneumonia and interval improvement in right lower lobe infiltrates. Electronically signed by: Sharlene Bautista MD Dictated: 06/10/2016 08:07 Problems Encounter Diagnosis Acute Exacerbation of Chronic Obstructive Airways Disease Status:Active.Chronic Atrial Fibrillation Status:Active.Chronic Congestive Heart Failure Status: Active.Diabetes Mellitus, Type 2 Status:Active.Fall Risk Status:Active.History of Coronary Artery Bypass Grafting Status:Active.History of Hypertension Status: Active.Mobility Impairment Status:Active.Pneumonia Status:Active.Additional Problems Dyspnea Comment:Problem resolved by [facility] Work[employer] upon Discharge, Status: Resolved. Encounters Encounter Diagnosis Acute Exacerbation of Chronic Obstructive Airways Disease Status:Active.Chronic Atrial Fibrillation Status:Active.Chronic Congestive Heart Failure Status: Active.Diabetes Mellitus, Type 2 Status:Active.Fall Risk Status:Active.History of Coronary Artery Bypass Grafting Status:Active.History of Hypertension Status: Active.Mobility Impairment Status:Active.Pneumonia Status:Active. Plan of Care Follow-up Appointments from 06/11/2016 12:33 PM:#1 Office appointment: : Dr. Arvizu with chest XRay.#1 Date/Time : 06/13/2016 3:30 PMAddress # 1 : [facility]: [address], [place], [place] - #2 Office appointment: : Keep appointment with cell stripper in 1 week.#2 Date/ Time : 06/24/2016 12:00 AMAddress # 2 : [place] 06/11/2016 11: 30 AM:Care Management Note [facility]. Patient is aware of planned discharge today and is eager to go home. He continues to deny the need for home health or Care Transitions. [facility] and information on [facility] but patient declined. [facility] to discuss nebulizer sitaution. She confirmed that patient could get replacement at this time as it has been several years since first one. [facility] Kathy Gunter APRN, regarding the need for a replacement nebulizer and requested script and progress note. [facility]. Patient informed he would be able to fiber picker new nebulizer. Patientvoiced understanding and had no additional questions or concerns. Social work assessment completed and patient is a high risk for readmission.Treatment Plan from 06/10/2016 1:31 PM:Care Management Note : POC reviewed with Dr. Hernadez and Dr. Cancino. CXR shows worsening Pneumonia. We will continue IV antibiotics, IV steroids, RT treatments, obtain CXR daily. Anticipate patient will require another 2 days of hospitalization. Care management will continue to follow.Treatment Plan from 06/09/2016 11:05 AM:Care Management Note : [facility] met with patient and spouse to discuss discharge planning. Patient lives at home with his spouse and is independent of ADLs. Patient has home O2 and a nebulizer with HEQ. He feels that his nebulizer may need replacing. [facility] informed Racquel Dorman APRN, of this information. Patient plans to return home and denied the need for any additional services or DME at thistime. [facility] provided contact information and will continue to follow.Treatment Plan from 06/09/2016 8:20 AM:Care Management Note : Patient is inpatient status. He has a history of COPD and CHF. He presented to the ED with shortness of breath for 2 weeks that has become significantly worse with exertional dyspnea and orthopnea, BLE edema, cough and fever. On presentation to the ED he was hypoxic with O2 sat88% on room air. CXR showed sheba. Pneumonia. Lung sounds with wheezes BUL and RML, diminished BLL. POC is IV antibiotics, RT treatments every 4 hours, resume home meds, blood cultures X 2, O2 to maintain sats greater than 90%, Pulse oximetry every 8 hours and pulmonology consult. Meets medical necessity for inpatient. Care management will follow, provide clinical information to commercial insurance upon request and assess for discharge needs. Procedures Completed , on 07/06/2013 12:00 AM Immunizations No immunizations administered or ordered. Hospital Course Hospital Discharge Instructions How to care for yourself at home from 06/11/2016 12:33 PM:Discharge Activity : Activity as toleratedDo not drive or operate machinery for: : while you are taking narcotic pain medication. Do not operate a vehicle until you feel safe to do so.Discharge Diet : As before hospitalization,Diet as toleratedCall your doctor if: : Fever over 101 F or severe chills,Chest pain or other unexplained symptoms,Tingling or numbness develops,A sudden increase or decrease in weight, You have persistent or worsening symptoms,If you have Heart Failure and you gain 3 pounds within 1 week or your symptoms worsen. (Weigh at home tomorrow morning)Specific Discharge Teaching Instructions provided: : YesSpecific Discharge Teaching Instructions Reviewed: : Stop SmokingDischarge on Warfarin : No Allergies, Adverse Reactions, Alerts Levaquin causes Severe Nausea and vomiting.Chantix causes Severe Unknown.Lipitor causes elevated liver enzymes.No Latex Allergy.No IV Contrast Allergy.No Known Food Allergies. Medication It is the responsibility of the patient or patient car sales representative to confirm the list of medicationswith either the patient's personal care provider or the patient's follow-up care provider to ensure the patient has an appropriate list of medications to take at home. Discharge medicationsNew medicationsamoxicillin-pot clavulanate 875 mg-125 mg Tablet, Ordered By: AKTHY GUNTER APRN Directions: 1 tablet oral twice a day predniSONE 10 mg Tablet, Ordered By: KATHY GUNTER APRN Directions: see below oral daily with breakfast Additional Instructions: 40 mg daily x3; 30 mg daily x3; 20 mg daily x3; 10 mg daily x3 Continued medicationscaptopril 25 mg Tablet, Ordered By: RICARDO HERNADEZ DO Directions: 1 tablet oral twice a day carvedilol 3.125 mg Tablet, Ordered By: RICARDO HERNADEZ DO Directions: 1 tablet oral daily clopidogrel 75 mg Tablet, Ordered By: RICARDO HERNADEZ DO Directions: 1 tablet oral daily dabigatran etexilate (Pradaxa) 150 mg Capsule, Ordered By: RICARDO HERNADEZ DO Directions: 1 capsule oral daily furosemide 40 mg Tablet, Ordered By: RICARDO HERNADEZ DO Directions: 1 tablet oral daily insulin detemir (Levemir) 100 unit/mL Solution, Ordered By: RICARDO HERNADEZ DO Directions: 15 unit subcutaneous at h.s. methocarbamol 750 mg Tablet, Ordered By: RICARDO HERNADEZ DO Directions: 1 tablet oral twice a day oxygen 2 L/NC nightly and PRN simvastatin 40 mg Tablet, Ordered By: RICARDO HERNADEZ DO Directions: 1 tablet oral daily at bedtime Changed medicationsipratropium-albuterol 0.5 mg-3 mg (2.5 mg base)/3 mL Solution for Nebulization, Ordered By: KATHY GUNTER APRN Directions: 3 mL by inhalation four times daily ipratropium bromide (AtroVENT HFA) 17 mcg/Actuation HFA Aerosol Inhaler, Ordered By: KATHY GUNTER APRN Directions: 2 puff by inhalation four times daily PRN shortness of breath dutasteride (Avodart) 0.5 mg Capsule, Ordered By: RICARDO HERNADEZ DO Directions: 1 capsule oral daily insulin aspart 100 unit/mL Insulin Pen, Ordered By: RICARDO HERNADEZ DO Directions: 5 unit subcutaneous three times a day nitroglycerin (Nitrostat) 0.4 mg Tablet, Sublingual, Ordered By: RICARDO HERNADEZ DO Directions: 1 tablet sublingual daily PRN chest pain Stopped medicationspotassium chloride (Klor-Con M20) 20 mEq tablet,ER particles/ crystals Directions: 1 tablet oral daily levalbuterol tartrate (Xopenex HFA) 45 mcg/Actuation HFA Aerosol Inhaler aspirin (Aspirin Low Dose) 81 mg tablet,delayed release (DR/EC) Directions: daily
--- OUTSIDE RECORDS SUMMARY | 2017-12-16 15:06 | External Medical Summary ---
:1955 Author Organization e[employer]Works Care Team Providers Name Role Phone Danielle Coronel Provider Role Unavailable Allergies, Adverse Reactions, Alerts Substance Reaction Event Type Levaquin Info Not Available Drug Allergy Problems Problem Type Condition Code Onset Dates Condition Status Assessment CAD (coronary artery disease) I25.10 Active Problem Obesity 278.00 Active Problem Hearing loss 389.9 Active Problem HLD (hyperlipidemia) E78.5 Active Problem GERD (gastroesophageal reflux K21.9 Active disease) Problem HTN (hypertension) I10 Active Problem COPD (chronic obstructive pulmonary J44.9 Active disease) Problem IDDM (insulin dependent diabetes E11.9 Active mellitus) Problem Afib I48.91 Active Problem CAD (coronary artery disease) I25.10 Active Assessment Acute bronchitis, unspecified J20.9 Active Assessment HLD (hyperlipidemia) E78.5 Active Assessment HTN (hypertension) I10 Active Assessment Cough R05 Active Assessment IDDM (insulin dependent diabetes E11.9 Active mellitus) Assessment Afib I48.91 Active Assessment COPD (chronic obstructive pulmonary J44.9 Active disease) Medications Medication Code Code Instructions Start End Status Dosage System Date Date Plavix [facility] [address]-55 75 MG Orally 1 tablet Once a day Levemir [facility] 94243646572 100 unit/mL INJECT 15 UNITS FlexTouch UNDER THE SKIN ONCE A DAY Simvastatin [facility] [address]-40 40 MG Orally 1 tablet once a day Captopril [facility] [address]-22 25 MG Orally Sherrie 1 tablet twice a day 2012 Home Oxygen NDC 0 supply PNC Oct 12, 2 liters nightly and 2011 prn during the day Iprat-albut NDC 0 0.5 mg-3 January INHALE ONE VIAL 0.5-3(2.5) mg/3 mg(2.5 07, IN NEBULIZER 4 ml 2014 TIMES A DAY NovoLog Flexpen [facility] [address]-94 100 INJECT 5 UNITS SUBCUTANEOUSLY TWICE TIMES A DAY WITH MEALS Flovent HFA [facility] [id number] 220 INHALE ONE PUFF BY MOUTH TWICE A DAY Methocarbamol [facility] [address]-63 750 MG Oral May 1 tablet twice a day 2016 Carvedilol [facility] [address]-72 3.125 MG Oral 1 tablet with Twice a day food Bactrim DS [facility] [address]-51 800-160 MG May 1 tablet Orally twice a 2015 Avodart [facility] 83539859655 0.5 TAKE ONE CAPSULE BY MOUTH DAILY Atrovent HFA [facility] 47761649982 17 INHALE TWO PUFFS FOUR TIMES A DAY Furosemide [facility] [address]-28 40 MG Orally 1 tablet once a day Xopenex HFA [facility] [address]-53 45 MCG/ACT INHALE 2 PUFFS Inhalation BY MOUTH EVERY every 4 hrs 4 TO 6 HOURS NEEDED Pradaxa [facility] 19457182569 150 MG Oral not defined Nitrostat [facility] [address]-81 0.4 MG 1 tablet Sublingual Klor-Con M20 [facility] 97084585501 20 TAKE ONE TABLET BY MOUTH DAILY WITH FOOD . TAKE WITH FUROSEMIDE Procedures Procedure Coding System Code Date X-Ray Chest CPT-4 08795 May 14, 2016 GLYCOSYLATED HEMOGLOBIN TEST CPT-4 51247 May 14, 2016 X-Ray Chest CPT-4 69824 May 14, 2016 OFFICE VISIT EST PATIENT LEVEL 4 CPT-4 36738 May 14, 2016 ASSAY THYROID STIM HORMONE.[facility] CPT-4 38586 May 14, 2016 Comprehen Metabolic Panel.[facility] CPT-4 35578 May 14, 2016 COMPLETE CBC, AUTOMATED.[facility] CPT-4 36128 May 14, 2016 Lipid Panel - [facility] CPT-4 13407 May 14, 2016 ROUTINE VENIPUNCTURE CPT-4 91416 May 14, 2016 Vital Signs Date/Time: May 14, 2016 BMI 36.59 Index Weight 269.8 lbs Height 72 in Blood Pressure Diastolic 80 mm Hg Blood Pressure Systolic 128 mm Hg Cardiac Monitoring Heart Rate 84 /min Temperature 98.1 F Respiratory Rate 18 /min Results No Known Results Summary Purpose eClinicalWorks Submission
--- OUTSIDE RECORDS SUMMARY | 2017-12-16 15:06 | External Medical Summary | Referral Summary ---
:1955 Author Organization [facility] Address [address] [place] [address] Care Team Providers Name Role Phone Danielle Coronel Primary Care Physician Encounter VC Date(s): 06/24/16 - 06/24/16 [facility] [address] [place] [address]- [place] Discharge Diagnosis: Hypoxia Discharge Diagnosis: COPD with emphysema Discharge Diagnosis: Chronic bronchitis Discharge Diagnosis: Tobacco abuse Discharge Diagnosis: Obesity Discharge Disposition: 01-Home or Self Care Attending Physician: Drake Newton MD Admitting Physician: Drake Newton MD Referring Physician: Danielle Coronel MD Vital Signs Most recent to oldest [Reference Range]: 1 Peripheral Pulse Rate [60-100 bpm] 91 bpm (06/24/16 2:16 PM) Blood Pressure [90-140/60-90 mmHg] 112/68 mmHg (06/24/16 2:16 PM) SpO2 91 % (06/24/16 2:16 PM) Problem List Condition Effective Dates Status Health [...] 3 times weekly on Thursday, Thursday and Thursday., # 12 tabs, 6 Refill(s), Pharmacy: [facility] #[id number], Take one tablet 3 times weekly on [...] Patient Education Author: Drake Newton MD Date: 06/24/16 No follow up information was provided.
--- OUTSIDE RECORDS SUMMARY | 2017-12-16 15:06 | External Medical Summary ---
:1955 Author Organization eClinicalWorks Care Team Providers Name Role Phone Danielle Coronle Provider Role Unavailable Allergies No Known Allergies [...] Instructions Start Date End Date Status Dosage Ipratropium-Alb [facility] [address] 0.5-2.5 (3) Jul 31, 3 ml uterol 3-73 MG/3ML Inhalation 2015 Four times a day Results No Known Results Summary Purpose AntavoinicalAirwoot Submission
--- OUTSIDE RECORDS SUMMARY | 2017-12-16 15:06 | External Medical Summary ---
:1955 Author Organization eClinicalWorks Care Team Providers Name Role Phone Danielle Coronel Provider Role Unavailable Allergies, Adverse Reactions, Alerts Substance Reaction Event Type Levaquin Info Not Available Drug Allergy Problems Problem Type Condition Code Onset Dates Condition Status Problem COPD (chronic obstructive pulmonary 496 Active disease) Problem Hearing loss 389.9 Active Problem Heart disease 429.9 Active Problem Diabetes mellitus without mention of 250.00 Active complication, type II or unspecified type, not stated as uncontrolled Problem Coronary atherosclerosis of 414.00 Active unspecified type of vessel, [place] or graft Problem Atrial fibrillation and flutter 427.31 Active Problem Obesity 278.00 Active Problem Unspecified essential hypertension 401.9 Active Problem GERD (gastroesophageal reflux 530.81 Active disease) Problem Other and unspecified hyperlipidemia 272.4 Active Assessment Unspecified essential hypertension 401.9 Active Assessment Other and unspecified hyperlipidemia 272.4 Active Assessment Coronary atherosclerosis of 414.00 Active unspecified type of vessel, [place] or graft Assessment COPD (chronic obstructive pulmonary 496 Active disease) Assessment Diabetes mellitus without mention of 250.00 Active complication, type II or unspecified type, not stated as uncontrolled Medications Medication Code Code Instructions Start End Status Dosage System Date Date OneTouch Ultra [facility] [id number] TEST BLOOD Test SUGARS THREE TIMES A DAY Flovent HFA [facility] [address]-84 220 MCG/ACT Nov 08May 02 puff Inhalation 2015 04, Twice a day 2014 Klor-Con M20 [facility] [id number] 20 TAKE ONE TABLET BY MOUTH EVERY DAY WITH FOOD . TAKE WITH FUROSEMIDE Levemir [facility] [address]-25 100 unit/mL Oct 14, 15 units by 2012 Subcutaneous route 1 time per day Ipratropium ND 0 17 Dec 05, inhale 2 puffs Halsey mcg/actuation 2013 (34 mcg) by inhalation route 4 times per day for 15 days Furosemide [facility] 40795299584 40 TAKE ONE TABLET BY MOUTH EVERY DAY Home Oxygen [facility] [address]-83 PNC daily - Oct 12, 2 Liters at night - for 2011 COPD Avodart [facility] 80455872326 0.5 TAKE ONE CAPSULE BY MOUTH ONCE A DAY Methocarbamol [facility] 06860387599 750 MG Oral not defined Captopril [facility] [address]-26 25 MG Orally May 02 tablet twice a day 2012 Aspirin ND 0 81 mg May 02 PER DAY 2012 Xopenex HFA [facility] [id number] 45 INHALE 2 PUFFS BY MOUTH EVERY 4 TO 6 HOURS NEEDED Iprat-albut ND 0 0.5 mg-3 January INHALE ONE VIAL 0.5-3(2.5) mg/3 mg(2.5 07, IN NEBULIZER 4 ml 2014 TIMES A DAY Pradaxa [facility] 81300849641 150 MG Oral not defined Simvastatin [facility] 72619029803 40 TAKE ONE TABLET BY MOUTH EVERY EVENING OneTouch Delica [facility] 44077824351 33 subQ three TEST THREE Lancets times daily TIMES A DAY for diabetes 250.00 NovoLog Flexpen [facility] 73290897812 100 INJECT 5 UNITS SUBCUTANEOUSLY THREE TIMES A DAY WITH MEALS Carvedilol [facility] 44689071142 3.125 MG Oral not defined Procedures Procedure Coding System Code Date OFFICE VISIT EST PATIENT LEVEL 3 CPT-4 45087 February 06, 2015 Vital Signs Date/Time: February 06, 2015 BMI 39.73 Index Weight 293 lbs Height 72 in Blood Pressure Diastolic 80 mm Hg Blood Pressure Systolic 120 mm Hg Cardiac Monitoring Heart Rate 80 /min Temperature 98.1 F Respiratory Rate 20 /min Results No Known Results Summary Purpose eClinicalWorks Submission
--- OUTSIDE RECORDS SUMMARY | 2017-12-16 15:06 | External Medical Summary ---
:1955 Author Organization [facility] Address [address] [place], [place] [address] Care Team Providers Name Role Phone Danielle Coronel Unavailable Unavailable PROBLEMS Type Condition ICD9-CM Code UIX99-RP Code Onset Condition SNOMED Code Dates Status Problem Hearing loss 389.9 Active 10901464 Problem IDDM (insulin E11.9 Active 874384823 dependent diabetes mellitus) Problem Obesity 278.00 Active 256572511 Problem HTN I10 Active 59182436 (hypertension) Problem HLD E78.5 Active 63110544 (hyperlipidemia) Problem CAD (coronary I25.10 Active 37982586 artery disease) Problem COPD (chronic J44.9 Active 21467015 obstructive pulmonary disease) Problem GERD K21.9 Active 867991702 (gastroesophagea l reflux disease) Problem Afib I48.91 Active 64274890 ALLERGIES Unknown Allergies SOCIAL HISTORY No smoking Hx information available PLAN OF CARE VITAL SIGNS MEDICATIONS Medication Instructions Dosage Frequency Start End Date Duration Status Date Flovent HFA 220 Inhalation Twice INHALE ONE 12h 30 Active a day PUFF BY MOUTH TWICE A DAY RESULTS No Results PROCEDURES No Known procedures IMMUNIZATIONS No Known Immunizations
--- OUTSIDE RECORDS SUMMARY | 2017-12-16 15:06 | External Medical Summary ---
[...] of 414.00 Active unspecified type of vessel, caht[place] or graft Problem Coronary artery disease I25.10 Active Problem Atrial fibrillation and flutter 427.31 Active Problem COPD (chronic obstructive pulmonary 496 Active disease) Problem Heart disease 429.9 Active Problem Hearing loss 389.9 Active Problem Unspecified essential hypertension 401.9 Active Medications No Known Medications Results No Known Results Summary Purpose eClinicalWorks Submission
--- OUTSIDE RECORDS SUMMARY | 2017-12-16 15:06 | External Medical Summary | Continuity of Care Document ---
:1955 Author Organization [facility] Allergies Active Description Code Type Severity Reaction Onset Reported/ Identified Relationship Clinical to Patient Status Yes NKDA Drug N/A N/A Aller gy Yes MISC-FOOD MISC_ Unknown N/A 02/18/2013 FA Yes Levaquin 84469 Unknown N/A 02/21/2013 Yes Chantix 07793 Unknown N/A 02/22/2013 0 Yes levofloxacin NKMA Severe Nausea/vo 08/28/2015 miting Medications Medication Packaging Start Stop Route Dosage Sig Date Date 1,000 mL 08/30/20 IV Sodium Chloride 5 15 75 mL/hr, IV 0.9%(Sodium Chloride 0.9% 1,000 mL) 8 tabs 08/29/20 Oral 600 mg clopidogrel(Plavi 5 15 600 mg=8 x) tabs, Oral, Once 2 mL 08/30/20 IV Push 4 mg 4 ondansetron(Zofra 5 15 mg=2 mL, IV n) Push, q6hr, PRN: Nausea 1 tabs 08/30/20 Oral 75 mg clopidogrel(Plavi 5 15 75 mg=1 tabs, x) Oral, Daily 1 tabs Oral 25 mg captopril(captopr 5 25 mg=1 tabs, il 25 mg oral Oral, BID, 60 tablet) tabs, 0 Refill(s) 1 tabs Oral 40 mg furosemide(furose 5 40 mg=1 tabs, mide 40 mg oral Oral, Daily, tablet) 30 tabs, 0 Refill(s) 1 tabs Oral 40 mg simvastatin(simva 5 40 mg=1 tabs, statin 40 mg oral Oral, Bedtime tablet) (once a day), 30 tabs, 0 Refill(s) tabs 08/30/20 Oral mg methocarbamol(met 5 15 mg=tabs, hocarbamol 750 mg Oral, TID, 0 oral tablet) Refill(s) 1 tabs Oral 3.125 mg carvedilol(carved 5 3.125 mg=1 ilol 3.125 mg tabs, Oral, oral tablet) BID, 180 tabs, 0 Refill(s) 1 caps Oral 0.5 mg dutasteride(Avoda 5 0.5 mg=1 rt 0.5 mg oral caps, Oral, capsule) Daily, 30 caps, 0 Refill(s) 1 tabs SubLingual 0.4 mg nitroglycerin(nit 5 0.4 mg=1 roglycerin 0.4 mg tabs, sublingual SubLingual, tablet) q5min, PRN: as needed for chest pain, 100 tabs, 0 Refill(s) 08/30/20 0 aspirin(aspirin) 5 15 Refill(s) 1 caps Oral 150 mg dabigatran(Pradax 5 150 mg=1 a 150 mg oral caps, Oral, capsule) BID, 60 caps, 0 Refill(s) 08/30/20 SubCutaneous insulin 5 15 SubCutaneous, detemir(Levemir) 0 Refill(s) 08/30/20 SubCutaneous insulin 5 15 SubCutaneous, aspart(NovoLOG) TIDAC, 0 Refill(s) 08/30/20 NEB levalbuterol(Xope 5 15 NEB, TID, 0 nex) Refill(s) 1 tabs 08/30/20 Oral 3.125 mg carvedilol(carved 5 15 3.125 mg=1 ilol 3.125 mg tabs, Oral, oral tablet) BID, 0 Refill(s) 1 caps 08/30/20 Oral 0.5 mg dutasteride(Avoda 5 15 0.5 mg=1 rt 0.5 mg oral caps, Oral, capsule) Daily, 0 Refill(s) 1 tabs 08/30/20 Oral 25 mg captopril(captopr 5 15 25 mg=1 tabs, il 25 mg oral Oral, BID, 0 tablet) Refill(s) 1 tabs 08/30/20 Oral 81 mg aspirin(aspirin 5 15 81 mg=1 tabs, 81 mg oral Oral, Daily, tablet) 0 Refill(s) 3 mL Inhalation 3 ipratropium-albut 5 mL, madeline(DuoNeb 0.5 Inhalation, mg-2.5 mg/3 mL QID, 0 inhalation Refill(s) solution) SubCutaneous 15 units insulin 5 15 units, detemir(Levemir) SubCutaneous, Bedtime (once a day), 0 Refill(s) 1 tabs 08/30/20 Oral 40 mg furosemide(furose 5 15 40 mg=1 tabs, mide 40 mg oral Oral, Daily, tablet) 0 Refill(s) SubCutaneous 5 units 5 insulin 5 units, aspart(NovoLOG) SubCutaneous, TIDAC, 0 Refill(s) 1 tabs Oral 20 mEq potassium 5 20 mEq=1 chloride(potassiu tabs, Oral, m chloride 20 mEq Daily, 0 oral tablet, Refill(s) extended release) 1 tabs Oral 750 mg methocarbamol(met 5 750 mg=1 hocarbamol 750 mg tabs, Oral, oral tablet) BID, 0 Refill(s) 3 mL 04/22/20 NEB 0.63 mg levalbuterol(Xope 5 17 0.63 mg=3 mL, nex 0.63 mg/3 mL NEB, q4hr, 0 inhalation Refill(s) solution) 1 tabs 08/30/20 Oral 40 mg simvastatin(simva 5 15 40 mg=1 tabs, statin 40 mg oral Oral, Bedtime tablet) (once a day), 0 Refill(s) 1 caps 08/30/20 Oral 150 mg dabigatran(Pradax 5 15 150 mg=1 a 150 mg oral caps, Oral, capsule) BID, 60 caps, 0 Refill(s) 1 tabs 08/30/20 Oral 20 mg atorvastatin(ator 5 15 20 mg=1 tabs, vastatin) Oral, Bedtime (once a day) 1 tabs 08/30/20 Oral 750 mg methocarbamol(met 5 15 750 mg=1 hocarbamol) tabs, Oral, BID 1 tabs 08/30/20 Oral 40 mg furosemide(furose 5 15 40 mg=1 tabs, mide) Oral, Daily 0.15 mL 08/30/20 SubCutaneous 15 units insulin 5 15 15 units=0.15 detemir(Levemir) mL, SubCutaneous, Bedtime (once a day) 1 caps 08/30/20 Oral 0.5 mg dutasteride(Avoda 5 15 0.5 mg=1 rt) caps, Oral, Daily 0.05 mL 08/30/20 SubCutaneous 5 units 5 insulin 5 15 units=0.05 aspart(NovoLOG) mL, SubCutaneous, TIDWM 0.5 mL 08/29/20 NEB 2.5 mg albuterol(albuter 5 15 2.5 mg=0.5 ol 5 mg/mL mL, NEB, (0.5%) q4hr, PRN: inhalation Shortness of solution) Breath/Wheezi ng 1 tabs 08/30/20 Oral 3.125 mg carvedilol(carved 5 15 3.125 mg=1 ilol) tabs, Oral, BID 1 tabs 08/30/20 Oral 25 mg captopril(captopr 5 15 25 mg=1 tabs, il) Oral, BID 1 tabs 08/30/20 Oral 20 mEq potassium 5 15 20 mEq=1 chloride(potassiu tabs, Oral, m chloride 20 mEq Daily oral tablet, extended release) 1 tabs 08/30/20 SubLingual 0.4 mg nitroglycerin(nit 5 15 0.4 mg=1 roglycerin 0.4 mg tabs, sublingual SubLingual, tablet) q5min, PRN: Angina/Chest Pain 2.5 mL 08/30/20 NEB 0.5 mg ipratropium(iprat 5 15 0.5 mg=2.5 ropium 500 mL, NEB, q2hr mcg/2.5 mL (scheduled), inhalation PRN: Other solution) (See Comment) 0.5 mL 08/30/20 NEB 2.5 mg albuterol(albuter 5 15 2.5 mg=0.5 ol 5 mg/mL mL, NEB, q2hr (0.5%) (scheduled), inhalation PRN: Other solution) (See Comment) 1 puffs Inhalation 220 mcg fluticasone(Flove 5 220 mcg=1 nt HFA 220 puffs, mcg/inh Inhalation, inhalation BID, 0 aerosol) Refill(s) 2 puffs 04/22/20 Inhalation 34 mcg ipratropium(Atrov 5 17 34 mcg=2 ent HFA 17 puffs, mcg/inh Inhalation, inhalation q4hr, PRN: aerosol) Wheezing, 0 Refill(s) 1 tabs Oral 75 mg clopidogrel(Plavi 5 75 mg=1 tabs, x 75 mg oral Oral, Daily, tablet) 30 tabs, 11 Refill(s) 12/24/19 azithromycin(azit 6 17 See hromycin 250 mg Instructions, oral tablet) Take one tablet 3 times weekly on Thursday, Thursday and Thursday., 12 tabs, 6 Refill(s) 1 puffs 07/15/20 Inhalation 1 umeclidinium-nicole 6 16 puffs, nterol(Anoro Inhalation, Ellipta 62.5 Daily, mcg-25 mcg/inh Samples X 3 inhalation given to powder) patient, instructed on use., 3 Each, 0 Refill(s) 1 puffs Inhalation 1 umeclidinium-nicole 6 puffs, nterol(Anoro Inhalation, Ellipta 62.5 Daily, mcg-25 mcg/inh Samples X 3 inhalation given to powder) patient, instructed on use., 3 Each, 0 Refill(s) umeclidinium-nicole 7 See nterol(Anoro Instructions, Ellipta 62.5 INHALE ONE mcg-25 mcg/inh DOSE BY MOUTH inhalation DAILY, 60 powder) unknown unit, 1 Refill(s) 01/14/20 umeclidinium-nicole 7 17 See nterol(Anoro Instructions, Ellipta 62.5 INHALE ONE mcg-25 mcg/inh DOSE BY MOUTH inhalation DAILY, 60 powder) unknown unit, 1 Refill(s) 12/02/19 DOCUSATE SODIUM 7 17 BIDPRN 12/02/19 ACETAMINOPHEN 7 17 Q4HPRN 12/02/19 ACETAMINOPHEN 7 17 Q4HPRN 12/02/19 ALUM-MAG 7 17 Q4HPRN HYDROXIDE-SIMETH 12/02/19 MAGNESIUM 7 17 HSPRN HYDROXIDE 12/02/19 ZOLPIDEM 7 17 HSPRN 12/02/19 ACETAMINOPHEN 7 17 Q4HPRN 12/02/19 ALUM-MAG 7 17 PRN HYDROXIDE-SIMETH 12/02/19 MAGNESIUM 7 17 PRN HYDROXIDE 12/02/19 NITROGLYCERIN 7 17 PRNCP 12/02/19 SODIUM CHLORIDE 7 17 PRNIV 0.9 % 12/02/19 ASPIRIN 7 17 ONCE 12/02/19 IPRATROPIUM-ALBUT 7 17 QIDRT MADELINE 12/02/19 ALBUTEROL SULFATE 7 17 Q4-6HPRN 12/02/19 IPRATROPIUM-ALBUT 7 17 QIDPRN MADELINE 12/02/19 CARVEDILOL 7 17 BIDWM 12/02/19 POTASSIUM 7 17 0700 CHLORIDE 12/02/19 CLOPIDOGREL 7 17 QD 12/02/19 CAPTOPRIL 7 17 BID 12/02/19 FUROSEMIDE 7 17 QD 12/02/19 INSULIN NOVOLOG 7 17 TIDWM 12/02/19 DUTASTERIDE 7 17 SUP 12/02/19 METHOCARBAMOL 7 17 BID 12/02/19 SIMVASTATIN 7 17 HS 12/02/19 INSULIN LEVEMIR 7 17 HS 12/02/19 AZITHROMYCIN 7 17 MWF J135 IV 40 mg pantoprazole(pant 7 40 mg, IV, oprazole 40 mg Daily, 1 intravenous Each, 0 injection) Refill(s) predniSONE(predni 7 See SONE 10 mg oral Instructions, tablet) Take 2 tablets daily for 14 days, then take 1 tablet daily for 14 days., 42 tabs, 0 Refill(s) 1 tabs Oral 250 mg azithromycin(azit 7 250 mg=1 hromycin 250 mg tabs, Oral, oral tablet) Daily, 30 tabs, 6 Refill(s) 1 puffs Inhalation 1 ipratropium-albut 7 puffs, madeline(Combivent Inhalation, Respimat CFC free QID, 1 Each, 20 mcg-100 1 Refill(s) mcg/inh inhalation aerosol) Problems Date Dx Attending Type Code Diagnosis Diagnosed By Coded 09/03/2015 Livia COLIN, Final E11.9 Type 2 diabetes Aziz R mellitus without complications 09/03/2015 Livia COLIN, Final E78.5 Hyperlipidemia, Aziz R unspecified 09/03/2015 Livia COLIN, Final F17.210 Nicotine dependence, Aziz R cigarettes, uncomplicated 09/03/2015 Livia COLIN, Final I10 Essential (primary) Aziz R hypertension 09/03/2015 Livia COLIN, Final I25.10 Atherosclerotic heart Aziz R disease of [place] coronary artery without angina pect 09/03/2015 Livia COLIN, Final 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 09/03/2015 Livia COLIN, Final I25.5 Ischemic Aziz R cardiomyopathy 09/03/2015 Livia OCLIN, Final I48.0 Paroxysmal atrial Aziz R fibrillation 09/03/2015 Livia COLIN, Final I50.40 Unspecified combined Aziz R systolic (congestive) and diastolic (congestive) heart 09/03/2015 Livia COLIN, Final J44.9 Chronic obstructive Aziz R pulmonary disease, unspecified 09/03/2015 Livia COLIN, Final J45.909 Unspecified asthma, Aziz R uncomplicated 09/03/2015 Livia COLIN, Final K21.9 Gastro-esophageal Aziz R reflux disease without esophagitis 09/03/2015 Livia COLIN, Reason R07.9 Chest pain, Aziz R unspecified 09/03/2015 Livia COLIN, Final Z79.4 [facility] (current) Aziz R use of insulin 09/03/2015 Livia COLIN, Final Z95.1 Presence of Aziz R aortocoronary bypass graft 09/03/2015 Livia COLIN, Final Z98.61 Coronary angioplasty Aziz R status 06/20/2016 SHEFALI NIÑO A419 Sepsis, unspecified organism 06/20/2016 SHEFALI NIÑO E119 Type 2 diabetes mellitus without complications 06/20/2016 SHEFALI NIÑO E6601 Morbid (severe) obesity due to excess calories 06/20/2016 SHEFALI NIÑO E785 Hyperlipidemia, unspecified 06/20/2016 SHEFALI NIÑO N15817 Nicotine dependence, cigarettes, uncomplicated 06/20/2016 SHEFALI NIÑO I2510 Athscl heart disease of [place] coronary artery w/o ang pctrs 06/20/2016 SHEFALI NIÑO I272 Other secondary pulmonary hypertension 06/20/2016 SHEFALI NIÑO I482 Chronic atrial fibrillation 06/20/2016 SHEFALI NIÑO I5030 Unspecified diastolic (congestive) heart failure 06/20/2016 SHEFALI NIÑO J189 Pneumonia, unspecified organism 06/20/2016 SHEFALI NIÑO J441 Chronic obstructive pulmonary disease w (acute) exacerbation 06/20/2016 SHEFALI NIÑO J9621 Acute and chronic respiratory failure with hypoxia 06/20/2016 SHEFALI NIÑO K219 Gastro-esophageal reflux disease without esophagitis 06/20/2016 SHEFALI NIÑO Z6839 Body mass index (BMI) 39.0-39.9, adult 06/20/2016 SHEFALI NIÑO 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 06/20/2016 SHEFALI NIÑO Z794 [facility] (current) use of insulin 06/20/2016 SHEFALI NIÑO Z955 Presence of coronary angioplasty implant and graft 12/18/2016 ARNULFO HASSAN S E78.5 HYPERLIPIDEMIA, MAKSOUD, AZIZ R UNSPECIFIED 12/18/2016 ARNULFO HASSAN R S I10 ESSENTIAL (PRIMARY) MAKSOUD, AZIZ R HYPERTENSION 12/18/2016 ARNULFO HASSAN P I25.119 ATHEROSCLEROTIC HEART ARNULFO HASSAN DISEASE OF HOPI CORONARY ARTERY WITH UNSPECIFIED ANGINA PECTORIS 12/18/2016 ARNULFO HASSAN S Z95.1 PRESENCE OF ARNULFO HASSAN AORTOCORONARY BYPASS GRAFT 12/18/2016 ARNULFO HASSAN S Z95.5 PRESENCE OF CORONARY ARNULFO HASSAN ANGIOPLASTY IMPLANT AND GRAFT Procedures There is no data. Results Test Result Range CBC NO DIFF (HEMOGRAM) - 12/02/16 11:15 WBC - WHITE CELL COUNT 8.0 X10(3) 4.5-11.0 RBC - RED CELL COUNT 5.18 X10(6) 4.60-6.20 PLATELET COUNT 169 X10(3) 150-450 HEMOGLOBIN 16.1 g/dl 13.5-18.0 HEMATOCRIT 47.7 % 40.0-54.0 MCV 92.1 fL 80.0-96.0 MCH 31 pg 27-31 MCHC 33.8 % 32.0-36.0 BMP - BASIC METABOLIC PANEL - 12/02/16 11:15 GLUCOSE 157 mg/dl 74-106 BUN 14 mg/dl 7-18 CREATININE 0.93 mg/dl 0.70-1.30 eGFR >60 mL/min SODIUM (NA) 136 mEq/L 136-146 POTASSIUM, BLOOD 4.5 mEq/L 3.5-5.1 CHLORIDE 99 mEq/L 98-107 CO2 (BICARBONATE) 29 mEq/L 21-32 CALCIUM 9.4 mg/dl 8.5-10.1 HOLD SPECIMEN FOR BLOOD BANK - 12/02/16 11:15 HOLD SPECIMEN FOR BLOOD BANK ARC Encounters ACCT No. Visit Discharge Status Pt. Type Provider Facility Loc./Unit Complaint Date/Time [id number] 06/08/2016 06/11/2016 DIS Inpatient RENAY, <PV2.3.2& 18 20:10:00 13:47:10 SHEFALI gt;Pneumonia , unspecified organism< /PV2.3.2> <PV2.3.2& gt;PNEUMONIA </PV2.3.2 ><PV2. 3.2>Sepsi s, unspecified organism< /PV2.3.2> <PV2.3.2& gt;Pneumonia , unspecified organism< /PV2.3.2> <PV2.3.2& gt;Acute and chronic respiratory failure with hypoxia</ PV2.3.2>& lt;PV2.3.2&g t;Chronic obstructive pulmonary disease w (acute) exacerbation </PV2.3.2 ><PV2. 3.2>Unspe cified diastolic (congestive) heart failure</ PV2.3.2>& lt;PV2.3.2&g t;Chronic atrial fibrillation </PV2.3.2 ><PV2. 3.2>Athsc l heart disease of [place] coronary artery w/o ang pctrs</PV 2.3.2>&lt ;PV2.3.2> Other secondary pulmonary hypertension </PV2.3.2 ><PV2. 3.2>Gastr o-esophageal reflux disease without esophagitis& lt;/PV2.3.2& gt;<PV2.3 .2>Type 2 diabetes mellitus without complication s</PV2.3. 2><PV2 .3.2>Hype rlipidemia, unspecified& lt;/PV2.3.2& gt;<PV2.3 .2>Morbid (severe) obesity due to excess calories< /PV2.3.2> <PV2.3.2& gt;Nicotine dependence, cigarettes, uncomplicate d</PV2.3. 2><PV2 .3.2>oysterman (current) use of anticoagulan ts</PV2.3 .2><PV 2.3.2>Lamin g term (current) use of insulin</ PV2.3.2>& lt;PV2.3.2&g t;Body mass index (BMI) 39.0-39.9, adult</PV 2.3.2>&lt ;PV2.3.2> Presence of coronary angioplasty implant and graft</PV 2.3.2> [id number] 08/10/2015 08/10/2015 CLS Sangita KENDY, 77 13:04:00 23:59:59 t JOSE ALBERTO [id number] 05/17/2015 05/17/2015 DIS Sangita LARRY, 89 18:00:00 18:10:43 t CHARLESJACOB [id number] 08/29/2015 08/30/2015 DIS [address] [facility] R07.9 086 07:22:00 09:50:00 t [facility] [place] [id number] 04/23/2017 Document [id number] 05:16:13 Registrat ion [id number] 12/25/2016 Document [id number] 05:17:04 Registrat ion [id number] 11/11/2016 Document [id number] 05:16:08 Registrat ion [id number] 2016 Document [id number] 05:17:02 Registrat ion [id number] 08/31/2015 Document [id number] 05:17:31 Registrat ion [id number] 08/30/2015 Document [id number] 05:16:08 Registrat ion [id number] 12/02/2016 12/02/2016 DIS [place]patigiana [place], [place] 110 CP, CAD 10:18:00 17:30:[address] [facility]
--- OUTSIDE RECORDS SUMMARY | 2017-12-16 15:06 | External Medical Summary ---
:1955 Author Organization [employer] Care Team Providers Name Role Phone Danielle Coronel Provider Role Unavailable Allergies No Known Allergies Problems Problem Type Condition Code Onset Dates Condition Status Assessment Flu vaccine need Z23 Active Problem Obesity 278.00 Active Problem Hearing loss 389.9 Active Problem HLD (hyperlipidemia) E78.5 Active Problem GERD (gastroesophageal reflux K21.9 Active disease) Problem HTN (hypertension) I10 Active Problem COPD (chronic obstructive pulmonary J44.9 Active disease) Problem IDDM (insulin dependent diabetes E11.9 Active mellitus) Problem Afib I48.91 Active Problem CAD (coronary artery disease) I25.10 Active Assessment HLD (hyperlipidemia) E78.5 Active Assessment HTN (hypertension) I10 Active Assessment IDDM (insulin dependent diabetes E11.9 Active mellitus) Assessment COPD (chronic obstructive pulmonary J44.9 Active disease) Medications Medication Code Code Instructions Start End Status Dosage System Date Date Atrovent HFA [facility] [id number] 17 Inhalation INHALE TWO Four times a PUFFS FOUR day TIMES A DAY Home Oxygen ND 0 supply PNC Oct 11, 2 liters nightly and 2011 prn during the day Anoro Ellipta [facility] [address]-49 62.5-25 1 puff MCG/INH Inhalation Once a day Levemir [facility] [address]-74 100 UNIT/ML INJECT 17 UNITS FlexTouch UNDER THE SKIN ONCE A DAY Plavix [facility] [address]-42 75 MG Orally 1 tablet Once a day Avodart [facility] [address]-75 0.5 MG Orally Sept 1 capsule Once a day 2016 Furosemide [facility] [address]-01 40 MG Orally 1 tablet once a day Xopenex HFA [facility] [address]-55 45 MCG/ACT INHALE 2 PUFFS Inhalation BY MOUTH EVERY every 4 hrs 4 TO 6 HOURS NEEDED Ipratropium-Alb [facility] [address]-88 0.5-2.5 (3) Sept 3 ml uterol MG/3ML 29, 2015 Four times a day Pradaxa [facility] [address]-13 150 MG Oral not defined Twice a day Simvastatin [facility] [address]-29 40 MG Orally 1 tablet once a day Alprazolam [facility] [address]-56 0.25 MG Orally Sept 1 tablet as twice a day 06, needed for 2015 anxiety/nerves Klor-Con M20 [facility] [id number] 20 TAKE ONE TABLET BY MOUTH DAILY WITH FOOD . TAKE WITH FUROSEMIDE Carvedilol [facility] [address]-93 3.125 MG Oral 1 tablet with Twice a day food Flovent HFA [facility] 74940736054 220 INHALE ONE PUFF BY MOUTH TWICE A DAY Azithromycin [facility] [address]-88 250 MG Orally 1 tablet thu, thu, thu Methocarbamol [facility] [address]-93 750 MG Oral May 1 tablet twice a day 2016 OneTouch Delica [facility] 46766692516 33 DX: E11.9 TEST THREE Lancets 33G TIMES A DAY Nitrostat [facility] [address]-49 0.4 MG 1 tablet Sublingual NovoLog Flexpen [facility] [address]-87 100 INJECT 7 UNITS SUBCUTANEOUSLY 2-3 TIMES A DAY WITH MEALS Captopril [facility] [address]-56 25 MG Orally May 1 tablet twice a day 2012 Procedures Procedure Coding System Code Date IMMUNIZATION ADMIN CPT-4 19353 Aug 18, 2016 OFFICE VISIT EST PATIENT LEVEL 4 CPT-4 67707 Aug 18, 2016 FLU VACC 4 ANGELA 3 YRS PLUS IM CPT-4 75451 Aug 18, 2016 Vital Signs Date/Time: Aug 18, 2016 BMI 35.91 Index Weight 264.8 lbs Height 72 in Blood Pressure Diastolic 68 mm Hg Blood Pressure Systolic 110 mm Hg Cardiac Monitoring Heart Rate 84 /min Temperature 97.9 F Respiratory Rate 20 /min Results Name Result Date Reference Range Unit Abnormality Flag OTHER-IMMUNIZATION ADMIN Immunizations Vaccine Administration Date *Fluzone, private, 3+ yrs, 0.5mL, quad vial, Aug 18, 2016 Summary Purpose [employer] Submission
--- OUTSIDE RECORDS SUMMARY | 2017-12-16 15:06 | External Medical Summary ---
[...] Date Status Dosage System Date Immanuel Cifuentes [facility] [id number] 33 DX: E11.9 TEST THREE Lancets 33G TIMES A DAY Results No Known Results Summary Purpose [employer] Submission
[2017-12-16] MEDS: METHYLPREDNISOLONE SOD SUCC 125mg/2ml INJECTION IVP SCH ×2 (15:45→23:46)
[2017-12-16] MEDS: CEFTRIAXONE 1 G in NS 50 ML IVP SCH (15:46)
[2017-12-16] MEDS: CARVEDILOL 3.125 MG TABLET PO SCH (17:44)
[2017-12-16] MEDS: INSULIN ASPART 100unit/ml INJECTION SQ SCH (17:44)
[2017-12-16] MEDS: RIVAROXABAN 20 MG TABLET PO SCH (17:44)
[2017-12-16] MEDS ORDERED: 1/2 NS IV SCH (18:30)
[2017-12-16] MEDS ORDERED: POTASSIUM CHLORIDE IV SCH (18:30)
[2017-12-16] MEDS: SIMVASTATIN 40 MG TABLET PO SCH (21:03)
[2017-12-16] MEDS: BUDESONIDE INH.SOLN 0.5mg/2ml NEB AEROSOL SCH (21:08)
[2017-12-17] MEDS: PANTOPRAZOLE 40 MG TABLET PO SCH (06:49)
[2017-12-17] MEDS: BUDESONIDE INH.SOLN 0.5mg/2ml NEB AEROSOL SCH ×2 (06:55→20:29)
[2017-12-17] MEDS: ALBUTEROL/IPRATROPIUM 2.5mg-0.5mg/3ml NEB AEROSOL SCH ×6 (06:55→20:28)
--- NOTE | 2017-12-17 08:13 | Family Practice Progress Note ---
Progress Note-A&P - Time Spent With Patient Total time spent is greater than 50% in coordination of care (as documented) at patient's floor/unit and/or counseling patient: (1) Chronic obstructive pulmonary disease with acute exacerbation Status: Acute Assessment and plan: Improved. Dr. Man to see Mr. Mcknight today. He does appear to have improved significantly since yesterday. I think he would benifit from another day in the hospital. Continue current medications and update to inpt. Current Visit: Yes (2) Acute bronchitis due to other specified organisms Status: Acute Assessment and plan: Continue rocephin Current Visit: Yes (3) Type 2 diabetes mellitus Status: Acute Assessment and plan: Stable. Last A1c 6.8. Current Visit: No (4) Coronary artery disease involving autologous artery coronary bypass graft Status: Acute Assessment and plan: Stable at this time. Current Visit: No (5) Hypertensive heart disease Status: Acute Current Visit: No (6) Hypercholesterolemia Status: Acute Current Visit: No (7) Tobacco dependence due to cigarettes Status: Acute Current Visit: No Subjective - Subjective Principal diagnosis: COPD excerb Interval history: He reports his breathing is much better this morning. He still feels tight. He reports he has not had any further chest pains. He is eating ok. No bowel movements. He denies fevers, chills or sweats. Cough is improved. Exam Vital signs: Temperature 96.8 F 12/17/17 07:54 Pulse Rate 83 12/17/17 07:54 Respiratory Rate 20 12/17/17 06:55 Blood Pressure 146/68 H 12/17/17 07:54 Pulse Oximetry 100 12/17/17 07:54 - Constitutional no acute distress - Routine HEENT Exam Head: Present: normocephalic, atraumatic - Routine Neck Exam Present: supple - Routine Respiratory Exam Present: decreased breath sounds Comments: Air movement in the bases posterior sheba is improved. No wheezes. He is not retracting. He did not cough when I interviewed him. - Routine Abdominal Exam Present: soft, normoactive bowel sounds, non distended, non tender - Routine Extremities Exam Present: no edema
--- NOTE | 2017-12-17 08:24 | Family Practice Progress Note ---
Progress Note-A&P - Time Spent With Patient Total time spent is greater than 50% in coordination of care (as documented) at patient's floor/unit and/or counseling patient: (1) Chronic obstructive pulmonary disease with acute exacerbation Status: Acute Assessment and plan: Improved. Dr. Man to see Mr. Mcknight today. He does appear to have improved significantly since yesterday. I think he would benifit from another day in the hospital. Continue current medications and update to inpt. Current Visit: Yes (2) Acute bronchitis due to other specified organisms Status: Acute Assessment and plan: Continue rocephin Current Visit: Yes (3) Type 2 diabetes mellitus Status: Acute Assessment and plan: Stable. Last A1c 6.8. Current Visit: No (4) Coronary artery disease involving autologous artery coronary bypass graft Status: Acute Assessment and plan: Stable at this time. Current Visit: No (5) Hypertensive heart disease Status: Acute Current Visit: No (6) Hypercholesterolemia Status: Acute Current Visit: No (7) Tobacco dependence due to cigarettes Status: Acute Current Visit: No (8) Hyperkalemia Status: Acute Assessment and plan: DC potassium in ivf and recheck tomorrow. Current Visit: Yes Exam Vital signs: Temperature 96.8 F 12/17/17 07:54 Pulse Rate 83 12/17/17 07:54 Respiratory Rate 20 12/17/17 06:55 Blood Pressure 146/68 H 12/17/17 07:54 Pulse Oximetry 100 12/17/17 07:54
[2017-12-17] MEDS: INSULIN ASPART 100unit/ml INJECTION SQ SCH ×3 (08:47→17:46)
[2017-12-17] MEDS: CARVEDILOL 3.125 MG TABLET PO SCH ×2 (08:48→17:50)
[2017-12-17] MEDS: METHYLPREDNISOLONE SOD SUCC 125mg/2ml INJECTION IVP SCH ×3 (08:48→23:19)
[2017-12-17] MEDS: LISINOPRIL 20 MG TABLET PO SCH (08:48)
[2017-12-17] MEDS: FINASTERIDE 5 MG TABLET PO SCH (08:48)
--- NOTE | 2017-12-17 12:28 | Pulmonology Consult Note ---
History of Present Illness Consult date: 12/17/17 Requesting physician: Marcell Hidalgo Reason for consult: COPD Chief complaint: shortness of breath History of present illness: HPI: This is a patient with COPD He has been a heavy smoker and continues to smoke at home The patient is using supplemental Oxygen 2 lpm since 2008 to maintain O2sats >90 %. The patient is compliant with the use of O2 and benefits from its use. The patient's breathing is improved with it and its use lowers the risk of exacerbation, hospitalization and . He uses Anoro daily, Combivent PRN, Flovent 220 1 puff BID In the last year was hospitalized once in the past year but has had several URTI 's in the last 1-2 years. Because of that he was placed on Azithromycin 250 mg daily which has helped him a lot. He use a wheelchair to go out of the house. He can't walk very far even at home. He is quite debilitated from multiple medical issues including uncontrolled DM, CHF, atrial fibrillation. He is admitted with sudden onset shortness of breath. He reports that he has been having more shortness of breath the day than yesterday. Two days ago in the evening time he was having chest pains and went to [place] emergency room. It taken to [facility] and his chest pains have gone away and not returned. At the emergency room acute ischemia was ruled out. He had a chest x-ray and was not found to have pneumonia. He was diagnosed with COPD exacerbation. He was seen in the clinic yesterday and started on prednisone 50 mg daily for three days. Also started on doxycycline 100 mg twice a day. Uses oxygen at home. He normally is on 2 L but currently is taking 3 L by nasal cannula. He has been coughing. His cough is worse. He feels like He cannot get any air in. He denies fevers chills or nausea or vomiting. He denies chest pain. He is sleeping on 2 to 3 pillows. On admission is ABG showed severe acute on chronic hypercapnic respiratory failure, pCO2 76, pH 7.26, PO2 60. PFS See problem list Surgical History: cabg - Social History Smoking status: Current every day smoker Review of Systems All systems: reviewed and no additional remarkable complaints except as stated ( what is mentioned in the HPI) PFS Patient Stated Medical History Seizures Yes Cardiac Arrhythmia Yes: afib/flutter Congestive Heart Failure Yes Coronary Artery Disease Yes Hypertension Yes Myocardial Infarction Yes Valvular Heart Disease Yes Bronchitis Yes Chronic Obstructive Pulmonary Yes Disease (COPD) Pneumonia Yes Diabetes Mellitus Type 2 Yes Gastroesophageal Reflux Yes Disease Gastrointestinal Bleeding Yes Ulcer Yes Hx Kidney Stones Yes Blood Transfusions Yes: reports reaction to the transfusion Surgical History: cabg - Social History Smoking status: Current every day smoker Medications Home Medications Medication Instructions Recorded Confirmed Type Anoro Ellipta 62.5-25 Mcg INH 1 puff IH QAM 12/16/17 12/16/17 History Apidra Solostar 6 units SQ TID 12/16/17 12/16/17 History Azithromycin 250 mg PO QDRHS 12/16/17 12/16/17 History Basaglar Kwikpen U-100 16 units SQ HS 12/16/17 12/16/17 History Carvedilol 3.125 mg PO BID 12/16/17 12/16/17 History Combivent Respimat Inhaler 20 - 100 mcg IH QID 12/16/17 12/16/17 History Finasteride 5 mg PO DAILY 12/16/17 12/16/17 History Flovent Hfa 220 mcg 1 puff IH BID 12/16/17 12/16/17 History Lasix 40 mg PO DAILY 12/16/17 12/16/17 History Lisinopril 20 mg PO DAILY 12/16/17 12/16/17 History Methocarbamol 750 mg PO BID 12/16/17 12/16/17 History Nitrostat 0.4 mg PO PRN PRN 12/16/17 12/16/17 History Pantoprazole Tab 40 mg PO DAILY 12/16/17 12/16/17 History Plavix 75 mg PO DAILY 12/16/17 12/16/17 History Potassium Chloride 20 mcg PO DAILY 12/16/17 12/16/17 History Simvastatin 40 mg PO HS 12/16/17 12/16/17 History Xarelto 20 mg PO DAILY 12/16/17 12/16/17 History Allergies Allergy/AdvReac Type Severity Reaction Status Date / Time cabbage Allergy Unknown Verified 12/16/17 13:08 levofloxacin [From Levaquin] Allergy Unknown Verified 12/16/17 13:08 strawberry Allergy Unknown Verified 12/16/17 13:08 varenicline [From Chantix] Allergy Unknown Verified 12/16/17 13:08 Exam Vital signs: Temperature 96.8 F 12/17/17 07:54 Pulse Rate 83 12/17/17 07:54 Respiratory Rate 20 12/17/17 10:34 Blood Pressure 146/68 H 12/17/17 07:54 Pulse Oximetry 93 12/17/17 10:34 - Constitutional obese Comments: chronically ill appearing - Routine HEENT Exam Head: Present: normocephalic, atraumatic Eye: Absent: conjunctival icterus ENT: Present: mucous membranes moist - Routine Neck Exam Present: supple. Absent: JVD - Routine Respiratory Exam Present: accessory muscle use, decreased breath sounds, wheezes - Routine Cardiovascular Exam Present: RRR - Routine Abdominal Exam Present: soft, normoactive bowel sounds - Routine Extremities Exam Absent: cyanosis, clubbing - Routine Skin Exam Absent: rash - Routine Neurological Exam Present: alert, oriented X3 Results - Laboratory Findings CBC and BMP: 12/17/17 04:25 12/17/17 04:25 ABG ABG pH 7.274 (7.350-7.450) L 12/16/17 17:30 ABG pCO2 76 MMHG (34-45) H* 12/16/17 17:30 ABG pO2 60 MMHG (80-100) L 12/16/17 17:30 ABG O2 Saturation 86.0 % (95.0-98.0) L 12/16/17 17:30 Abnormal lab findings: Abnormal Labs 12/16/17 12/16/17 12/16/17 15:00 15:00 17:30 WBC Plt Count Neutrophils % (Manual) 78.0 H Lymphocytes % (Manual) 10.0 L Monocytes % (Manual) 12.0 H Lymphocytes # (Manual) Monocytes # (Manual) 1.2 H ABG pH 7.274 L ABG pCO2 76 H* ABG pO2 60 L ABG HCO3 35.0 H ABG Total CO2 37.0 H ABG O2 Saturation 86.0 L ABG Base Excess 5.0 H Sodium 132 L Potassium Chloride 89 L Carbon Dioxide 33 H Creatinine Glucose 143 H Calculated Osmolality 259 L Specimen Hemolysis 30 H 12/17/17 12/17/17 04:25 04:25 WBC 4.2 L D Plt Count 127 L Neutrophils % (Manual) 84.0 H Lymphocytes % (Manual) 9.0 L Monocytes % (Manual) Lymphocytes # (Manual) 0.4 L Monocytes # (Manual) ABG pH ABG pCO2 ABG pO2 ABG HCO3 ABG Total CO2 ABG O2 Saturation ABG Base Excess Sodium Potassium 5.4 H D Chloride 90 L Carbon Dioxide 36 H Creatinine 0.7 L Glucose 171 H Calculated Osmolality Specimen Hemolysis Assessment and Plan (1) Acute and chronic respiratory failure with hypercapnia Status: Acute Assessment and plan: clearly worsened by exacerbation of COPD We will add empiric BIPAP ST while he is hospitalized with sleep. I will have the RT department set that up This patient qualifies for a home ventilator with mask interface due to chronic respiratory failure. The patient is at high risk for exacerbation, hospitalization and due to respiratory failure and use of a home vent-to- mask reduces those risks. Current Visit: Yes (2) Chronic obstructive pulmonary disease with acute exacerbation Status: Acute Assessment and plan: Agree with O2, Iv and Neb corticosteroids and aggressive neb bronchodilators ( albuterol/ipratrop) we will recheck a CXR recheck rapid influenza testing and RVP testing wean steroids as tolerated Agree with empiric Rocephin. We will check Xray and adjust as necessary. Current Visit: Yes - Time Spent With Patient Total time spent is greater than 50% in coordination of care (as documented) at patient's floor/unit and/or counseling patient: 25 - 35 minutes
--- NOTE | 2017-12-17 15:00 | XRay Report ---
INDICATION: COPD, history of pleural effusion PROCEDURE: CHEST 2-VIEWS UPRIGHT (PA & LAT) Encounter: Initial COMPARISON: None FINDINGS: The lungs are hyperinflated with increased markings in the lung bases. No focal lobar consolidation. No pleural effusion or pneumothorax. Prior CABG. Cardiac silhouette is at the upper limits of normal in size to mildly enlarged. Mediastinal contours are within normal limits. Pulmonary vascularity is prominent centrally. Impression: Findings of COPD and possible pulmonary artery hypertension. .
[2017-12-17] MEDS: CEFTRIAXONE 1 G in NS 50 ML IVP SCH (15:19)
[2017-12-17] MEDS: RIVAROXABAN 20 MG TABLET PO SCH (20:07)
[2017-12-17] MEDS: SIMVASTATIN 40 MG TABLET PO SCH (22:06)
[2017-12-17] MEDS ORDERED: FALL RISK - PHARMACY CONSULT XX ONE (22:20)
[2017-12-18] MEDS: PANTOPRAZOLE 40 MG TABLET PO SCH (06:39)
[2017-12-18] MEDS: ALBUTEROL/IPRATROPIUM 2.5mg-0.5mg/3ml NEB AEROSOL SCH ×2 (07:36→10:23)
[2017-12-18] MEDS: BUDESONIDE INH.SOLN 0.5mg/2ml NEB AEROSOL SCH (07:36)
--- NOTE | 2017-12-18 08:12 | Family Practice Progress Note ---
Progress Note-A&P - Time Spent With Patient Total time spent is greater than 50% in coordination of care (as documented) at patient's floor/unit and/or counseling patient: less than 15 minutes (1) Chronic obstructive pulmonary disease with acute exacerbation Status: Acute Assessment and plan: Stable for discharge to home. Will switch iv steroids to 50 mg daily of prednisone. Continue o2 at 2 liters continuous. Continue home nebulizers as before hospitalization. Follow up with me on Thursday Current Visit: Yes (2) Acute bronchitis due to other specified organisms Status: Acute Assessment and plan: Switch rocephin to doxycycline. Current Visit: Yes (3) Type 2 diabetes mellitus Status: Acute Assessment and plan: Continue current out pt medication Current Visit: No (4) Coronary artery disease involving autologous artery coronary bypass graft Status: Acute Assessment and plan: Stable at this time. Current Visit: No (5) Hypertensive heart disease Status: Acute Assessment and plan: Stable Current Visit: No (6) Hypercholesterolemia Status: Acute Current Visit: No (7) Tobacco dependence due to cigarettes Status: Acute Assessment and plan: Strongly encouraged him not to smoke at home. He is considering it. Current Visit: No (8) Hyperkalemia Status: Acute Assessment and plan: Lab pending at this time. Current Visit: Yes (9) Acute and chronic respiratory failure with hypercapnia Status: Acute Assessment and plan: Currently stable. DC to home. Current Visit: Yes (10) Atrial fibrillation with controlled ventricular rate Status: Acute Assessment and plan: Rate controlled. Continue cureent medications. Current Visit: No Subjective - Subjective Principal diagnosis: Copd excerbation Interval history: He feels much better. He denies chest pain. The tightness is gone. He is sob with activity as normal. He denies fever chills sweats nausea or vomiting. He is still coughing a dry cough. Exam Vital signs: Temperature 96.1 F L 12/17/17 23:24 Pulse Rate 77 12/17/17 23:24 Respiratory Rate 18 12/18/17 07:37 Blood Pressure 117/63 12/17/17 23:24 Pulse Oximetry 91 12/18/17 07:37 - Constitutional no acute distress - Routine HEENT Exam Head: Present: normocephalic, atraumatic - Routine Neck Exam Present: supple - Routine Respiratory Exam Present: decreased breath sounds, CTA bilaterally - Routine Cardiovascular Exam Present: RRR - Routine Abdominal Exam Present: soft, non distended, non tender - Routine Extremities Exam Present: no edema
[2017-12-18 08:25] VITALS: BP 142/68; PULSE 83; TEMP 96.7
[2017-12-18] MEDS: INSULIN ASPART 100unit/ml INJECTION SQ SCH (08:43)
[2017-12-18] MEDS: CARVEDILOL 3.125 MG TABLET PO SCH (08:44)
[2017-12-18] MEDS: FINASTERIDE 5 MG TABLET PO SCH (08:44)
[2017-12-18] MEDS: METHYLPREDNISOLONE SOD SUCC 125mg/2ml INJECTION IVP SCH (08:44)
[2017-12-18] MEDS: LISINOPRIL 20 MG TABLET PO SCH (08:44)
--- NOTE | 2017-12-18 09:08 | Discharge Summary ---
Providers Date of admission: 12/17/17 08:37 Primary care physician: Marcell Hidalgo MD Consults: 12/16/17 20:55 Physician Consult [CONS] Routine Consulting Provider: Tirso Man Reason For Exam: copd exacerbation Ordering Provider has Notified Content Development Specialist: Yes 12/16/17 21:12 [facility] Consult [CONS] Routine Diagnosis - Discharge Diagnosis (1) Chronic obstructive pulmonary disease with acute exacerbation Status: Acute (2) Acute bronchitis due to other specified organisms Status: Acute (3) Type 2 diabetes mellitus Status: Acute (4) Coronary artery disease involving autologous artery coronary bypass graft Status: Acute (5) Hypertensive heart disease Status: Acute (6) Hypercholesterolemia Status: Acute (7) Tobacco dependence due to cigarettes Status: Acute (8) Hyperkalemia Status: Acute (9) Acute and chronic respiratory failure with hypercapnia Status: Acute (10) Atrial fibrillation with controlled ventricular rate Status: Acute Summary Hospital course: See progress notes - Time Spent with Patient Total time spent providing and/or coordinating discharge services: Exam Vital signs: Temperature 96.7 F L 12/18/17 08:23 Pulse Rate 83 12/18/17 08:23 Respiratory Rate 12 12/18/17 08:23 Blood Pressure 142/68 H 12/18/17 08:23 Pulse Oximetry 93 12/18/17 08:23 DS: Data Labs on day of discharge: Labs from last 24 hours 12/18/17 12/18/17 12/17/17 07:54 07:52 14:28 WBC 9.3 D RBC 4.75 Hgb 14.7 Hct 44.5 MCV 93.7 MCH 30.9 MCHC 33.0 RDW Std Deviation 43.7 Plt Count 144 MPV 9.7 Immature Gran % (Auto) 0.1 Neut % (Auto) 84.4 H Lymph % (Auto) 9.8 L Wayne % (Auto) 5.7 Eos % (Auto) 0.0 Baso % (Auto) 0.0 Neut # (Auto) 7.9 H Lymph # (Auto) 0.9 L Wayne # (Auto) 0.5 Eos # (Auto) 0.0 Baso # (Auto) 0.0 Abs Immat Gran (auto) 0.01 Turbidity < 20 Sodium 134 Potassium 4.7 Chloride 86 L Carbon Dioxide 43 H* Anion Gap 5 BUN 16.0 Creatinine 0.8 GFR Calculation 98 BUN/Creatinine Ratio 20 Glucose 171 H Glucometer 198 Calculated Osmolality 263 Calcium 9.1 Icterus Index < 2 Specimen Hemolysis < 15 Adenovirus (PCR) B.parapertussis DNA PCR C. pneumoniae DNA (PCR) Coronavirus OC43 (PCR) Coronavirus HKU1 (PCR) Coronavirus 229E (PCR) Coronavirus NL63 (PCR) Human Metapneumovir PCR Influenza Type A (PCR) Influenza Type B (PCR) M. pneumoniae (PCR) Parainfluenza 1 (PCR) Parainfluenza 2 (PCR) Parainfluenza 3 (PCR) Parainfluenza 4 (PCR) RSV (PCR) Entero/Rhino (PCR) 12/17/17 12/17/17 13:59 11:01 WBC RBC Hgb Hct MCV MCH MCHC RDW Std Deviation Plt Count MPV Immature Gran % (Auto) Neut % (Auto) Lymph % (Auto) Wayne % (Auto) Eos % (Auto) Baso % (Auto) Neut # (Auto) Lymph # (Auto) Wayne # (Auto) Eos # (Auto) Baso # (Auto) Abs Immat Gran (auto) Turbidity Sodium Potassium Chloride Carbon Dioxide Anion Gap BUN Creatinine GFR Calculation BUN/Creatinine Ratio Glucose Glucometer 210 Calculated Osmolality Calcium Icterus Index Specimen Hemolysis Adenovirus (PCR) Negative B.parapertussis DNA PCR Negative C. pneumoniae DNA (PCR) Negative Coronavirus OC43 (PCR) Negative Coronavirus HKU1 (PCR) Negative Coronavirus 229E (PCR) Negative Coronavirus NL63 (PCR) Negative Human Metapneumovir PCR Negative Influenza Type A (PCR) Negative Influenza Type B (PCR) Negative M. pneumoniae (PCR) Negative Parainfluenza 1 (PCR) Negative Parainfluenza 2 (PCR) Negative Parainfluenza 3 (PCR) Negative Parainfluenza 4 (PCR) Negative RSV (PCR) Negative Entero/Rhino (PCR) Negative DS: Plan - Discharge Medications/Orders Prescriptions: New predniSONE [Prednisone] 50 mg PO DAILY 2 Days #2 tab.ds.pk MDD 50 mg Doxycycline [Vibramycin] 100 mg PO BID 9 Days #18 tab MDD 200 Continue Basaglar Kwikpen U-100 16 units SQ HS Carvedilol 3.125 mg PO BID Combivent Respimat Inhaler 20 - 100 mcg IH QID Nitrostat 0.4 mg PO PRN PRN PRN Reason: Angina Pantoprazole Tab 40 mg PO DAILY Plavix 75 mg PO DAILY Xarelto 20 mg PO DAILY Anoro Ellipta 62.5-25 Mcg INH 1 puff IH QAM Apidra Solostar 6 units SQ TID Azithromycin 250 mg PO QDRHS Finasteride 5 mg PO DAILY Flovent Hfa 220 mcg 1 puff IH BID Lasix 40 mg PO DAILY Lisinopril 20 mg PO DAILY Methocarbamol 750 mg PO BID Potassium Chloride 20 mcg PO DAILY Simvastatin 40 mg PO HS - Patient/Caregiver Discharge Instructions - Follow up Plan Follow up with: Marcell Hidalgo MD [Family Provider] - (follow up on Thursday) Disposition: Discharged Home, Self-Care
--- NOTE | 2017-12-18 09:44 | Pulmonology Progress Note ---
Subjective Principal diagnosis: Copd excerbation Interval history: Pt up to EOB, states he has some cough but minimal sputum, + SOB noted. Exam Vital signs: Temperature 96.7 F L 12/18/17 08:23 Pulse Rate 83 12/18/17 08:23 Respiratory Rate 12 12/18/17 08:23 Blood Pressure 142/68 H 12/18/17 08:23 Pulse Oximetry 93 12/18/17 08:23 - Constitutional mild distress, morbidly obese - Routine HEENT Exam Head: Present: normocephalic, atraumatic Eye: Present: EOMI, PERRL ENT: Present: mucous membranes moist - Routine Neck Exam Present: supple, full ROM, trachea midline - Routine Respiratory Exam Present: decreased breath sounds, wheezes - Routine Cardiovascular Exam Present: RRR, S1, S2, no murmur - Routine Abdominal Exam Present: soft, normoactive bowel sounds - Routine Extremities Exam Present: no edema, non tender, full ROM - Routine Back/Spine/Pelvis Exam Back/Spine: Present: full ROM - Routine Skin Exam Present: intact, dry - Routine Neurological Exam Present: alert, oriented X3, CN II-XII intact - Routine Psychiatric Exam Present: normal affect, normal thought process Assessment and Plan - Assessment and Plan Acute Hypercapnic Respiratory Failure COPD exacerbation Plan: Pt currently on O2 at 2L per NC, states he was unable to use bipap last noc as he didn't tolerate it. On BT's with a/a q3hr WA, pulmicort BID and solumedrol 125mg q8hr. CXR yesterday shows COPD but no acute process. According to primary note dismissing pt today with f/u on Thursday. - Time Spent With Patient Total time spent is greater than 50% in coordination of care (as documented) at patient's floor/unit and/or counseling patient: less than 15 minutes
[2017-12-18 10:30] VITALS: RESP 18
[2017-12-19 22:57] VITALS: O2SAT 89
== END 2017-12-18 11:13 | disposition home or self-care (01) | DRG 202 ==
LOC: MED
PROVIDERS: ADMIT Family Medicine; ATTEND Family Medicine